=== PATIENT | male | born 1960 | race Caucasian/White ===

== ENCOUNTER → 2017-01-31 | Outpatient (CLI) | payer OTHER ==
[~2017-01-31] MED LIST: ALBUTEROL17 GM INH; AMARYL PO; AMARYL2 MG PO; AMITRIPTYLINE H25 MG PO; ASPIRIN EC81 M1 PO; ASPIRIN PO; ASPIRIN1 GM PO; ASPIRIN81 M1 PO; ASPIRIN81 M2 PO; ASPIRIN81 MG PO; ATORVASTATIN CA80 MG PO; AUGMENTIN PO; BACTRIM DS TABL1 TA1 PO; CELEXA10 MG PO; CENTRUM PO; CLINDAMYCIN HC300 MG PO; COLACE PO; COLCHICINE0.6 M1; COLCHICINE0.6 M1 PO; COLCRYS0.6 M2 PO; COMBIVENT INH14.7 GM INH; COREG PO; COUMADIN PO; COUMADIN1 MG PO; COUMADIN5 MG PO; CYANOCOBAL1000 MCG/1 INJ; ENDOCET 5-3251 EACH PO; FISH OIL 1,0001 CAP PO; GLUCOPHAGE XR500 MG PO; GLUCOPHAGE500 MG PO; HYDRALAZINE HC100 MG PO; HYDRALAZINE HCL50 MG PO; HYDROCODON-ACE1 EAC1 PO; HYDROCODONE-A1 UDTA4 PO; HYDROCODONE-APA1 T30 PO; IMITREX PO; INDERAL20 MG PO; INDERAL60 MG PO; JANUMET; JANUVIA PO; KEPPRA500 M2 PO; LASIX PO; LASIX20 MG PO; LEVEMIR100 UNITS/ SUBQ; LIPITOR40 MG PO; LIPITOR80 MG PO; LISINOPRIL PO; LISINOPRIL20 MG PO; LORTAB 7.5-3251 EACH PO; LORTAB 7.5-5001 TAB; LORTAB 7.5-5001 TAB PO; LORTAB 7.51 TAB DOB; METFORMIN HCL1000 M1 PO; METFORMIN PO; METOPROLOL SUCC50 MG PO; METOPROLOL TAR25 MG PO; MULTI-DAY1 TAB PO; NEURONTIN300 MG PO; NICOTINE PATCH1 EAC1 TD; PATIENT'S PHARMACY; PHENERGAN25 MG; POLYTRIM EYE DR10 ML OP; PRAVACHOL PO; PRAVASTATIN SOD40 MG PO; PRILOSEC PO; PRINIVIL10 MG PO; PRINIVIL20 M1 PO; PROPRANOLOL PO; PROTONIX PO; PROZAC10 M1 PO; PROZAC10 MG PO; SPIRIVA18 MCG INH; ST. JOSEPH ASPI81 M2 PO; TOPAMAX50 MG PO; TOPROL XL 50 MG50 MG PO; TRICOR PO; TYL325 PO; TYLENOL325 M1 PO; WARFARIN SODIU7.5 M1 PO; ZANAFLEX PO; ZANTAC PO; ZANTAC150 M1 PO; ZESTRIL40 MG PO
[2017-01-31 10:17] LABS: URINE APPEARANCE CLEAR; URINE BILIRUBIN NEG (NEG); URINE BLOOD NEG (NEG); URINE COLOR DK YELLOW; URINE GLUCOSE 500 MG/DL (NEG); URINE KETONE NEG (NEG); URINE LEUKOCYTE ESTERASE NEG (NEG); URINE NITRATE NEG (NEG); URINE PROTEIN NEG (NEG); URINE SPECIFIC GRAVITY 1.012 (1.003-1.035); URINE UROBILINOGEN 0.2 MG/DL (NEG)
[2017-01-31 10:24] LABS: URINE SOURCE CLEAN CATCH
[2017-01-31 11:36] LABS: ALBUMIN SERUM 4.4 g/dL (3.5-5.0); ALKALINE PHOSPHATASE 132 U/L (32-92); ALT (SGPT) 20 U/L (10-40); AST (SGOT) 23 U/L (10-42); BILIRUBIN,TOTAL 0.5 mg/dL (0.2-2.0); BLOOD UREA NITROGEN 17 mg/dL (9-23); BUN/CREATININE RATIO 14.16; CARBON DIOXIDE 26 mmol/L (22-31); CHLORIDE 102 mmol/L (100-111); CREATININE SERUM 1.2 mg/dL (0.6-1.4); GLOM FILT RATE Estimated ABOVE60 mL/min (>60); GLUCOSE FASTING 294 mg/dL (70-110); POTASSIUM 4.2 mmol/L (3.5-5.1); PROTEIN TOTAL SERUM 7.7 g/dL (6.0-8.3); SODIUM 136 mmol/L (135-145); URIC ACID 5.5 mg/dL (2.6-7.2)
== END | disposition home or self-care (01) ==
LOC: CLAB 09:54
PROVIDERS: Internal Medicine Nephrology
DX: N18.3 Chronic kidney disease, stage 3 (moderate) (principal)
CPT/HCPCS: 80053; 81003; 84550

== ENCOUNTER 2017-02-17 18:23 | Emergency (ER) | payer OTHER ==
--- NOTE | ~2017-02-17 | EKG ---
PATIENT: LANEY MATTA UNIT #: [id number] Ventricular Rate: 74 BPM Atrial Rate: 74 BPM P-R Interval: 210 ms QRS Duration: 204 ms Q-T Interval: 514 ms QTC Calculation(Bezet): 570 ms P [place]: 14 degrees Calculated R [place]: -73 degrees Calculated T [place]: 99 degrees Diagnosis Line: Atrial-sensed ventricular-paced rhythm with Diagnosis Line: prolonged AV conduction Diagnosis Line: Abnormal ECG Diagnosis Line: When compared with ECG of 01-AUG-2016 05:52, Diagnosis Line: Electronic ventricular pacemaker has replaced Diagnosis Line: Sinus rhythm Diagnosis Line: Vent. rate has increased BY 25 BPM Diagnosis Line: Confirmed by MIHAI SCHWARTZ MD ([id number]) on 02/18/2017 Diagnosis Line: 7:32:22 AM INTERPRETING MD: LANA GORDILLO
--- NOTE | ~2017-02-17 | CT71 ---
[facility] A Service of [facility] RADIOLOGY TEXT RESULTS PATIENT: LANEY MATTA LOCATION: [facility] : 62 UNIT #: [id number] AGE: [address]: Miles Pollard MD SEX: M ORDER DR: [id number] [facility] [address] [place], [place] [address] [id number] E MR#: [id number] #: [id number] NAME: LANEY MATTA. : 1960 SEX: M STUDY DATE/TIME: 02/17/2017 19:50 UNIT: IRVIN ROOM: STUDY DESCRIPTION: CT Head Wo Contrast Attending Physician: Roderick Pollard M.D. Ordering Physician: Pernell Raines M.D. Primary Care Physician: Irma Dietrich M.D. MEDICAL IMAGING REPORT This report is preliminary unless electronic signature is present EXAM Noncontrast head CT. HISTORY Syncope with headache today, syncopal episode 2 hours ago COMPARISON Head CT 07/29/[address] exam was performed with one or more of the following radiation dose reduction techniques: Automatic exposure control, adjustment of mA and/or kV according to patient size, and iterative reconstruction. FINDINGS Axial noncontrast imaging of the brain demonstrates extensive encephalomalacia in the right occipital lobe from prior infarct. There are multiple foci of decreased attenuation within the right basal ganglia , right thalamus and periventricular white matter which may represent small lacunar infarcts. This does not appear significantly changed from the prior CT scan of 07/29/2016. No mass or hemorrhage. No mass effect or midline shift. Intracranial vascular calcifications noted. Bony calvarium, skull base, mastoids and sinuses unremarkable. IMPRESSION 1. No acute intracranial abnormality identified. 2. Old right occipital lobe infarct as well as evidence of multiple small lacunar infarcts within the deep nuclei and right periventricular white matter. Study is unchanged from 07/29/2016. Dictated by.Herminio Walsh M.D. [facility] A Service of [facility] RADIOLOGY TEXT RESULTS PATIENT: LANEY MATTA LOCATION: [facility] : 62 UNIT #: [id number] AGE: [address]: Miles Pollard MD SEX: M ORDER DR: THIS IS AN ELECTRONICALLY VERIFIED REPORT Rudy Walsh M.D. at 02/18/2017 10:52 PM Naya TD: 02/18/2017 11:33 JOB #: [id number] MEDICAL IMAGING REPORT Page 1 of 1 COPY
[~2017-02-17 18:23] MED LIST changes: -AMARYL2 MG PO; -AMITRIPTYLINE H25 MG PO; -ASPIRIN81 M2 PO; -ASPIRIN81 MG PO; -ATORVASTATIN CA80 MG PO; -AUGMENTIN PO; -COLCHICINE0.6 M1 PO; -COLCRYS0.6 M2 PO; -COUMADIN PO; -CYANOCOBAL1000 MCG/1 INJ; -ENDOCET 5-3251 EACH PO; -IMITREX PO; -INDERAL20 MG PO; -INDERAL60 MG PO; -KEPPRA500 M2 PO; -LEVEMIR100 UNITS/ SUBQ; -LORTAB 7.5-3251 EACH PO; -NEURONTIN300 MG PO; -NICOTINE PATCH1 EAC1 TD; -PATIENT'S PHARMACY; -PRINIVIL10 MG PO; -PROPRANOLOL PO; -PROTONIX PO; -PROZAC10 M1 PO; -PROZAC10 MG PO; -TOPAMAX50 MG PO; -TYL325 PO; -WARFARIN SODIU7.5 M1 PO; -ZANAFLEX PO; -ZESTRIL40 MG PO
[2017-02-17 18:35] LABS: BASOPHIL# 0.1 X10e3 (0-0.3); BASOPHIL% 0.7 % (0-2.5); EOSINOPHIL# 0.1 X10e3 (0-0.7); EOSINOPHIL% 1.6 % (0.0-7.0); HEMATOCRIT 42.5 % (38.0-50.0); HEMOGLOBIN 14.2 gm/dL (13.0-16.0); LYMPHOCYTE# 2.6 X10e3 (1.0-3.5); LYMPHOCYTE% 31.7 % (17.0-45.0); MEAN CORPUSCULAR HEMOGLOBIN 26.8 PG (28-34); MEAN CORPUSCULAR HGB CONC 33.4 g/dL (30-36); MEAN PLATELET VOLUME 10.4 FL (6.5-11.5); MONOCYTE# 0.7 X10e3 (0-1.0); MONOCYTE% 8.9 % (3.0-12.0); NEUTROPHIL# 4.7 X10e3 (1.5-7.1); NEUTROPHIL% 57.1 % (40-75); PLATELET COUNT 203 X10e3 (140-420); RED BLOOD COUNT 5.31 X10e (3.90-5.60); WHITE BLOOD COUNT 8.3 X10e3 (4.0-10.5)
[2017-02-17 18:36] LABS: DIFF IND NO
[2017-02-17 18:56] LABS: ALBUMIN SERUM 4.2 g/dL (3.5-5.0); BILIRUBIN, DIRECT 0.1 mg/dL (0.0-0.2); BILIRUBIN,INDIRECT 0.6 mg/dL (0.0-0.9); BILIRUBIN,TOTAL 0.7 mg/dL (0.2-2.0); BUN/CREATININE RATIO 18.23; CALCIUM SERUM 9.4 mg/dL (8.4-10.2); CREATININE SERUM 1.7 mg/dL (0.6-1.4); GLOM FILT RATE Estimated 44.4 mL/min (>60); POTASSIUM 3.9 mmol/L (3.5-5.1); PROTEIN TOTAL SERUM 7.8 g/dL (6.0-8.3)
[2017-02-17 19:15] LABS: PARTIAL THROMBOPLASTIN TIME 34.9 SECONDS (23.5-31.3); PROTHROMBIN TIME (PATIENT) 10.6 SECONDS (9.6-11.5)
[2017-02-17 19:16] LABS: POC - CKMB 1.7 ng/mL (0.0-7.9); POC - TROPONIN <0.05 ng/mL (<=0.05)
[2017-02-17 19:16] LABS: URINE SOURCE CLEAN CATCH
[2017-02-17 19:29] LABS: URINE APPEARANCE CLEAR; URINE BILIRUBIN NEG (NEG); URINE BLOOD NEG (NEG); URINE COLOR DK YELLOW; URINE GLUCOSE NEG (NEG); URINE KETONE NEG (NEG); URINE LEUKOCYTE ESTERASE NEG (NEG); URINE NITRATE NEG (NEG); URINE PROTEIN NEG (NEG); URINE SPECIFIC GRAVITY 1.014 (1.003-1.035); URINE UROBILINOGEN 0.2 MG/DL (NEG)
[2017-02-17 19:32] LABS: CULTURE INDICATED? NO
[2017-02-17 19:39] LABS: AMPHETAMINE NEG (NEG); BARBITURATES NEG (NEG); BENZODIAZEPINES NEG (NEG); COCAINE NEG (NEG); MARIJUANA NEG (NEG); OPIATES NEG (NEG); TRICYCLIC ANTIDEPRESSANTS NEG (NEG); U METHADONE NEG (NEG)
[2017-02-17 19:46] LABS: POC - CKMB 1.9 ng/mL (0.0-7.9); POC - TROPONIN <0.05 ng/mL (<=0.05)
== END 2017-02-17 21:54 | disposition home or self-care (01) ==
LOC: CED 18:23
PROVIDERS: Emergency Medicine
DX: R55 Syncope and collapse (principal); R41.82 Altered mental status, unspecified; I25.2 Old myocardial infarction; F17.210 Nicotine dependence, cigarettes, uncomplicated; Z86.73 Personal history of transient ischemic attack (TIA), and cerebral infarction without residual deficits; Z95.1 Presence of aortocoronary bypass graft; Z79.899 Other long term (current) drug therapy
CPT/HCPCS: 36415; 70450; 80048; 80076; 80307; 81003; 82553; 84484; 85025; 85610; 85730; 93005; 99284; G0480

== ENCOUNTER 2017-03-05 14:49 | Inpatient (IN) | payer OTHER ==
--- NOTE | ~2017-03-05 | EKG ---
PATIENT: LANEY MATTA UNIT #: [id number] Ventricular Rate: 77 BPM Atrial Rate: 77 BPM P-R Interval: 358 ms QRS Duration: 118 ms Q-T Interval: 384 ms QTC Calculation(Bezet): 434 ms P [place]: 26 degrees Calculated R [place]: 19 degrees Calculated T [place]: -123 degrees Diagnosis Line: Sinus rhythm with 1st degree A-V block Diagnosis Line: Inferior infarct (cited on or before 05-MAR-2017) Diagnosis Line: ST and T wave abnormality, consider anterolateral Diagnosis Line: ischemia Diagnosis Line: Abnormal ECG Diagnosis Line: When compared with ECG of 05-MAR-2017 12:33, Diagnosis Line: No significant change was found Diagnosis Line: Confirmed by MIHAI SCHWARTZ MD ([id number]) on 03/06/2017 Diagnosis Line: 10:17:57 PM INTERPRETING MD: LANA GORDILLO
--- NOTE | ~2017-03-05 | US37 ---
[facility] A Service of [facility] RADIOLOGY TEXT RESULTS PATIENT: LANEY MATTA LOCATION: [facility] : 62 UNIT #: [id number] AGE: [address]: Lisseth Carmen MD SEX: M ORDER DR: [id number] [id number] [place], [place] [address] [id number] I MR#: [id number] #: [id number] NAME: LANEY MATTA. : 1960 SEX: M STUDY DATE/TIME: 03/06/2017 11:11 UNIT: [address] ROOM: [address] [place] [address] DESCRIPTION: US Carotid W/Doppler Bilateral Attending Physician: Lisseth Carmen M.D. Ordering Physician: Jon Tee M.D. Primary Care Physician: Irma Dietrich M.D. MEDICAL IMAGING REPORT This report is preliminary unless electronic signature is present EXAM Carotid Doppler DATE OF STUDY 03/06/2017 HISTORY 3 syncopal episodes in the past 2 days COMPARISON None TECHNIQUE Arshad-scale imaging, color Doppler flow imaging and Doppler wave form analysis. FINDINGS There is minimal arshad-scale evidence of atherosclerotic plaque and antegrade flow is seen in both common and internal and external carotid and vertebral arteries. Right internal carotid peak systolic velocity is 86 cm/second with a brisk systolic upstroke. Left internal carotid peak systolic velocity is 63 cm/second with a brisk systolic upstroke. IMPRESSION 1. While there is some arshad-scale evidence of atherosclerotic plaque, velocities and wave forms suggest less than 50% stenosis in both internal carotid arteries by NASCET criteria. 2. Antegrade flow in both external carotid and vertebral arteries as [facility] A Service of [facility] RADIOLOGY TEXT RESULTS PATIENT: LANEY MATTA LOCATION: [facility] : 62 UNIT #: [id number] AGE: [address]: Lisseth Carmen MD SEX: M ORDER DR: letty. Dictated by... Murtaza Harris M.D. THIS IS AN ELECTRONICALLY VERIFIED REPORT Murtaza Harris M.D. at 03/07/2017 5:03 PM TEV/to TD: 03/06/2017 21:09 JOB #: [id number] MEDICAL IMAGING REPORT Page 1 of 1 COPY
--- NOTE | ~2017-03-05 | CO ---
Unit #: [id number] #: [id number] Patient: TERA MATTA [id number] [facility] [address] [place], [place] [address] [id number] I MR#: [id number] NAME: TERA MATTA. ROOM: 312 Age: 56 Sex: M Admission Date: 03/05/2017 : 1960 Attending Physician: Lisseth Carmen M.D. Primary Care Physician: Irma Dietrich M.D. Consultation Date: 03/06/2017 CONSULTATION REPORT CHIEF COMPLAINT Depression and anxiety. HISTORY OF PRESENT ILLNESS Mr. Tera Glass is a 56-year-old male, seen in room 312 bed 1 at [facility]. The patient was admitted with chest pain. The patient was admitted initially with altered mental status. The patient has multiple health conditions such as diabetes type 2, history of CVA in May, pacemaker placement. The patient lives with his . The patient was sad, depressed, crying spell. The patient was not able to give reliable information. The patient was somewhat confused. The patient made comments about feeling sad, depressed, and comments about dying. The patient had a history of suicide attempt in the past. The patient also has medical condition, but unable to answer question about current suicidal or homicidal ideation. Minimizes problem, flat, sad and dysphoric. Denied any psychotic symptom, but somewhat confused. PAST PSYCHIATRIC HISTORY Remarkable for history of previous suicide attempt, but no history of any inpatient treatment known at this time or any outpatient treatment. MEDICAL HISTORY Remarkable for history of coronary artery disease, LA in 2008, hypertension, hyperlipidemia, diabetes mellitus type 2, obstructive sleep apnea. MEDICATION HISTORY The patient is on Levemir, Topamax, NovoLog, amitriptyline, Lipitor, Coumadin. Please refer to MAR for detail. FAMILY HISTORY AND SOCIAL HISTORY The patient has a good support system from his family. No history of any abuse. No history of any substance abuse. REVIEW OF SYSTEMS Complete review of systems is unremarkable except as mentioned above. MENTAL STATUS EXAMINATION General appearance, the patient dressed casually. Attention span and concentration, poor. Speech, slow. Orientation in place and self. Mood and affect were sad and dysphoric. Thought process was circumstantial. Thought content; the patient denied any thoughts of harming self or others, but made comments to the primary physician about feeling sad, depressed, and suicidal ideation, but able to contract for safety at this Unit #: [id number] #: [id number] Patient: TERA MATTA time. Recent and remote memory, poor. Language, fair. Fund of knowledge, poor. Insight and judgment, fair to slightly impaired. DIAGNOSES Psychiatric: 1. Major depressive disorder, recurrent, severe, F33.2. 2. Delirium, F05, improving. Secondary diagnosis: Deferred. Medical diagnosis: Please refer to H and P. Stressors: Psychosocial stressors. ASSESSMENT/PLAN 1. Supportive psychotherapy and psychoeducation provided to the patient. 2. Educated about benefits and side effects of medication and course and prognosis of illness. 3. Advised to start the patient on Celexa 20 mg daily for depression. If needed, consider further adjustment of medication. We will closely monitor. Please feel free to call if any questions telephone #[phone]. Dictated by... Malcom Mckenzie/yogesh TD: 03/07/2017 05:17 JOB #: [id number] CONSULTATION REPORT Page 1 of 1 X Ross Vergara MD X CONSULTATION REPORT
--- NOTE | ~2017-03-05 | CO ---
Unit #: [id number] #: [id number] Patient: LANEY AMTTA [id number] [address] [place], [place] [address] [id number] I MR#: [id number] NAME: LANEY MATTA. ROOM: 312 Age: 56 Sex: M Admission Date: 03/05/2017 : 1960 Attending Physician: Lisseth Carmen M.D. Primary Care Physician: Irma Dietrich M.D. Consultation Date: 03/05/2017 CONSULTATION REPORT REASON FOR CONSULTATION Syncope. HISTORY OF PRESENT ILLNESS This is a 56-year-old white male, who has since seen by our group in the past. He has a history of myocardial infarction in 2008, where he underwent coronary artery bypass graft x4. He is known to have symptomatic bradycardia and underwent dual-chamber permanent pacemaker in 2016. He has hypertension, hyperlipidemia, and a history of right CREMATORIUM OPERATOR cerebrovascular accident. The patient presents to the emergency room with altered mental status. He is a poor historian, but complains of a headache, dizziness, and abdominal discomfort. He has had several episodes of syncope with loss of consciousness. His states he has ataxia and falls frequently. He has had no loss of bowel or bladder. He denies chest pain, palpitations, or dizziness. He states his pacemaker has been shocking him. He has not been eating and drinking well, because of epigastric pain. His noted him to be confused and brought him to the emergency room for evaluation. In the emergency room, the patient was found to be in acute kidney injury, where his creatinine was 2.2. He was normotensive on arrival with blood pressure of 131/76 mmHg. No arrhythmias were seen on his EKG. Troponin was normal. He did have an old inferior infarct with deep T-wave inversion in the anterolateral leads on his EKG. CT of the head showed no acute changes. INR is subtherapeutic at 1.1. PAST MEDICAL HISTORY 1. A 2D echocardiogram on 06/16/2016 shows an ejection fraction equal to 50%. There was a right to left interatrial shunt consistent with PFO. Ommd-ul-ngrgcobz mitral regurgitation, mild tricuspid regurgitation. No left atrial appendage clot. Kxgh-en-lhmbdgse atherosclerosis of the aorta. 2. Myocardial infarction in 2008, status post coronary artery bypass graft x4. 3. Hypertension. 4. Hyperlipidemia. 5. Sick sinus syndrome/symptomatic bradycardia, status post dual-chamber [employer] permanent pacemaker on 08/01/[address] Cho at [facility]. 6. PFO, on Coumadin. 7. Right CREMATORIUM OPERATOR cerebrovascular accident. 8. Obstructive sleep apnea. 9. Active smoker. Unit #: [id number] #: [id number] Patient: LANEY MATTA PAST SURGICAL HISTORY 1. Coronary artery bypass graft. 2. Permanent pacemaker. 3. Cholecystectomy. SOCIAL HISTORY The patient is and not employed. He continues to smoke at least 3 to 4 cigarettes a day. No illicit drug or alcohol use. FAMILY HISTORY Mother had coronary artery bypass surgery. Father from a myocardial infarction in his 60s. ALLERGIES No known drug allergies. HOME MEDICATIONS Furosemide 20 mg daily, Coumadin 5 mg daily, lisinopril 40 mg daily, hydralazine 100 mg b.i.d., Lipitor 80 mg q.h.s., amitriptyline 25 mg q.h.s., Neurontin 300 mg t.i.d., colchicine 0.6 mg daily, Protonix 40 mg daily. REVIEW OF SYSTEMS CONSTITUTIONAL: Negative for fever or chills. Reports weakness. No weight gain or weight loss. HEENT: Positive for headache and dizziness. No difficulty with swallowing. CARDIOVASCULAR: Negative for chest pain or palpitations. No paroxysmal nocturnal dyspnea or orthopnea. Positive for syncope. RESPIRATORY: Denies dyspnea, cough, or hemoptysis. GASTROINTESTINAL: Positive for epigastric pain and nausea. No vomiting. EXTREMITIES: Negative for lower extremity edema. PHYSICAL EXAMINATION VITAL SIGNS: Blood pressure 131/76, heart rate 72, temperature 98.3. GENERAL: This is a 56-year-old middle-aged white male, who is in no acute distress. NEUROLOGIC: He is awake, alert, and oriented without focal weaknesses. NECK: Trachea is midline. No thyromegaly or lymphadenopathy. No jugular venous distention. HEART: S1, S2. Heart sounds are normal. No murmurs, rubs, or clicks. Regular rate and rhythm. LUNGS: Diminished breath sounds with poor inspiratory effort. No wheezes or rhonchi. ABDOMEN: Soft and nontender with bowel sounds are present. EXTREMITIES: Without leg edema. SKIN: Warm and dry. DIAGNOSTIC STUDIES LABORATORY RESULTS: Hemoglobin 15.0, hematocrit 44.5, platelet count 194, white count 7.7. Sodium 136, potassium 4.2, BUN 25, creatinine 2.2, glucose 241, magnesium 1.9. Troponin less than 0.05. INR 1.1. IMAGING STUDIES: CT of the head shows no acute changes. There was previous right CREMATORIUM OPERATOR infarct. CARDIOVASCULAR: EKG; sinus rhythm with a first-degree AV block with old Unit #: [id number] #: [id number] Patient: LANEY MATTA inferior infarct. There was deep anterolateral T-wave inversion noted for ischemic changes. IMPRESSION 1. Mental status change. 2. Staggered gait. 3. Abdominal pain with nausea and vomiting. 4. Rule out basal artery disease in a diabetic with heavy nicotine abuse. 5. Volume depletion. 6. Headache, questionable etiology. 7. Syncope, most likely secondary to volume depletion. 8. Sick sinus syndrome, status post permanent pacemaker. 9. History of cerebrovascular accident. 10. History of myocardial infarction, status post coronary artery bypass graft in 2008. PLAN 1. Cardiology was consulted for cardiac management. We will continue to trend cardiac enzymes and troponin. EKG is abnormal with new anterolateral ischemic changes. We will repeat EKG. 2. Replace fluids. 3. Await neuro consult. 4. I have asked the patient to discontinue nicotine abuse. 5. Syncope, it is most likely secondary to volume depletion. 6. Coumadin has been restarted. INR is subtherapeutic. We will continue to trend INR. 7. We may have to hold CTA, because of elevated creatinine. We will add Mucomyst for renal protection. 8. Ultrasound of the carotid and vertebral artery will be obtained to rule out basilar artery stenosis. 9. Orthostatic blood pressures will be obtained to rule out orthostatic hypotension. 10. We will follow the patient with you. Thank you for allowing us to assist in this patient's care. Dictated by... Hany Felipe A.P.R.N. for Malcom Cruz/courtneyl TD: 03/07/2017 00:41 JOB #: [id number] CC: Irma Dietrich M.D. CONSULTATION REPORT Page 1 of 1 X Hany Felipe APRN CONSULTATION REPORT
--- NOTE | ~2017-03-05 | US6 ---
[facility] A Service of [facility] RADIOLOGY TEXT RESULTS PATIENT: LANEY MATTA LOCATION: [facility] 312- : [birth year] UNIT #: [id number] AGE: [address]: Lisseth Carmen MD SEX: M ORDER DR: [id number] [facility] [address] [place], [place] [address] [id number] I MR#: [id number] #: [id number] NAME: LANEY MATTA. : 1960 SEX: M STUDY DATE/TIME: 03/05/2017 19:02 UNIT: [address] ROOM: [facility] STUDY DESCRIPTION: US Abdominal Limited Attending Physician: Lisseth Carmen M.D. Ordering Physician: Jon Tee M.D. Primary Care Physician: Irma Dietrich M.D. MEDICAL IMAGING REPORT This report is preliminary unless electronic signature is present EXAM Right upper quadrant sonogram HISTORY 56-year-old male right upper quadrant pain off and on x2 days, nausea, vomiting. Patient diabetic, prior cholecystectomy. FINDINGS Real-time examination demonstrates the liver to be of normal size, shape and echogenicity. No intra- or extrahepatic ductal dilatation is identified. The common bile duct measures 6.9 mm. Visualized right kidney appears normal. The pancreas not well visualized due to bowel gas. No free fluid. IMPRESSION 1. Limited right upper quadrant sonogram demonstrates normal liver and right kidney with no free fluid or ductal dilatation. 2. Poor visualization of the pancreas. Patient is post cholecystectomy. Dictated by... Rudy Walsh M.D. THIS IS AN ELECTRONICALLY VERIFIED REPORT Rudy Walsh M.D. at 03/06/2017 10:59 PM DYLAN/mumtaz TD: 03/05/2017 23:24 JOB #: [id number] MEDICAL IMAGING REPORT Page 1 of 1 COPY
--- NOTE | ~2017-03-05 | CO ---
Unit #: [id number] #: [id number] Patient: TERA RADFORD [id number] [facility] [address] [place], [place] [address] [id number] I MR#: [id number] NAME: TERA RADFORD. ROOM: 312 Age: 56 Sex: M Admission Date: 03/05/2017 : 1960 Attending Physician: Lisseth Carmen M.D. Primary Care Physician: Irma Dietrich M.D. Consultation Date: 03/07/2017 CONSULTATION REPORT REASON FOR CONSULTATION Depression. DISCUSSION Mr. Tera Radford is a 56-year-old male seen on 03/07/2017 at [facility] in room 312, bed 1. Patient was sleeping, guarded, flat affect, sad, and dysphoric. Patient started on Celexa. Patient's nurse called and reported that patient is having problem with confusion, agitation, paranoia, and delusional thinking. Patient's reported that he had problems with this medication before, similar behavior, which is a typical side effect from the medication. Patient's vital signs: 99.6, 56, 19, and 144/99. Patient denied any other complaints. Denied any suicidal ideation, but history of suicidal ideation and depression at the time of admission. REVIEW OF SYSTEMS Complete review of systems unremarkable. MENTAL STATUS EXAMINATION GENERAL APPEARANCE: Patient dressed in hospital attire. ATTENTION SPAN AND CONCENTRATION: Poor. SPEECH: Slow. ORIENTATION: Oriented in place. MOOD AND AFFECT: Sad, depressed. THOUGHT PROCESS: Circumstantial. THOUGHT CONTENT: Guarded and paranoid, but denied any thoughts of harming self or others; but sad, depressed. RECENT AND REMOTE MEMORY: Fair to poor. LANGUAGE: Fair. FUND OF KNOWLEDGE: Fair. INSIGHT AND JUDGEMENT: Fair to slightly impaired. DIAGNOSES PSYCHIATRIC: Major depressive disorder, recurrent, severe, F33.2. ASSESSMENT/PLAN 1. Supportive psychotherapy and psychoeducation provided to patient. 2. Educated about benefits and side effects of medication and course and prognosis of illness. Advised to consider stopping Celexa and monitor patient's mood and behavior. If needed, consider alternative medication. Please feel free to call if any questions, telephone number . Unit #: [id number] #: [id number] Patient: TERA RADFORD [place] Dictated by... Malcom Mckenzie/avani TD: 03/08/2017 11:20 JOB #: [id number] CONSULTATION REPORT Page 1 of 1 X Ross Vergara MD CONSULTATION REPORT
--- NOTE | ~2017-03-05 | EKG ---
PATIENT: LANEY MATTA UNIT #: [id number] Ventricular Rate: 74 BPM Atrial Rate: 74 BPM P-R Interval: 384 ms QRS Duration: 118 ms Q-T Interval: 394 ms QTC Calculation(Bezet): 437 ms P [place]: 19 degrees Calculated R [place]: 19 degrees Calculated T [place]: -127 degrees Diagnosis Line: Sinus rhythm with 1st degree A-V block Diagnosis Line: Inferior infarct , age undetermined Diagnosis Line: ST and T wave abnormality, consider anterolateral Diagnosis Line: ischemia Diagnosis Line: Abnormal ECG Diagnosis Line: When compared with ECG of 17-FEB-2017 19:43, Diagnosis Line: Sinus rhythm has replaced Electronic ventricular Diagnosis Line: pacemaker Diagnosis Line: Confirmed by MIHAI SCHWARTZ MD ([id number]) on 03/05/2017 Diagnosis Line: 11:03:34 PM INTERPRETING MD: LANA GORDILLO
--- NOTE | ~2017-03-05 | CO ---
Unit #: [id number] #: [id number] Patient: TERA RADFORD [id number] [facility] [address]. [place], [place] [address] [id number] I MR#: [id number] NAME: TERA RADFORD ROOM: 312 Age: 56 Sex: M Admission Date: 03/05/2017 : 1960 Attending Physician: Lisseth Carmen M.D. Primary Care Physician: Irma Dietrich M.D. Consultation Date: 03/08/2017 CONSULTATION REPORT REASON FOR CONSULTATION Followup. DISCUSSION Mr. Tera Radford is a 56-year-old male, seen in room 312, bed 1 on 03/08/2017 at [facility]. The patient reports that his mood is better, decrease in anxiety, compliant with medication. The patient denied any chest pain. The patient's was at the bedside. The patient reported that he had a bad reaction with Celexa in the past. The patient was taken off from this medication. REVIEW OF SYSTEMS Complete review of systems is unremarkable. MENTAL STATUS EXAMINATION General appearance, the patient dressed casually, lying comfortably in bed, made good eye contact, able to smile. Attention span and concentration, fair. Speech, regular rate and coherent. Oriented in time, place, and person. Mood and affect were somewhat brighter and able to smile. Thought process, coherent and goal directed. Thought content, the patient denied any thoughts of harming self or others or any psychotic symptom. Recent and remote memory, fair. Language, intact. Fund of knowledge, fair. Insight and judgment, fair. DIAGNOSES Mood disorder, not otherwise specified, F32.9; history of major depressive disorder, recurrent. ASSESSMENT AND PLAN 1. Supportive psychotherapy and psychoeducation provided to the patient. 2. Educated about benefits and side effects of medication and course and prognosis of illness. The patient was taken off from Celexa. Advised to follow up with the outpatient psychiatrist upon discharge. Dictated by..Bautista Vergara M.D. ISIDORO/yogesh TD: 03/10/2017 04:38 JOB #: [id number] Unit #: [id number] #: [id number] Patient: TERA RADFORD CONSULTATION REPORT Page 1 of 1 X Ross Vergara MD CONSULTATION REPORT
--- NOTE | ~2017-03-05 | DS ---
Unit #: [id number] #: [id number] Patient: LANEY MATTA [id number] [facility]. [address] [address] [id number] I MR#: [id number] NAME: LANEY MATTA. ROOM: 312 Age: 56 Sex: M Admission Date: 03/05/2017 : 1960 Discharge Date: Attending Physician: Lisseth Carmen M.D. Primary Care Physician: Irma Dietrich M.D. DISCHARGE SUMMARY ADDENDUM The patient is status post evaluation per Psychiatry, no changes made. For now, outpatient followup with Psychiatry. DISCHARGE MEDICATIONS 1. Coumadin 5 mg daily. 2. Topamax 50 mg b.i.d. 3. Amitriptyline 25 mg h.s. 4. Atorvastatin 80 mg h.s. 5. Hydralazine 50 mg p.o. b.i.d. 6. Levemir 5 units subcu h.s. 7. Protonix 40 mg p.o. daily. FOLLOWUP Patient is to follow up with primary care physician in two to three days. DISPOSITION Patient is being discharged home with Home Health to follow PT/INR. These results need to be called to Cardiology or primary care physician. Dictated by... Neto Clarke M.D. OC/jimi TD: 03/08/2017 21:53 JOB #: [id number] DISCHARGE SUMMARY Page 1 of 1 X Neto Clarke MD X DISCHARGE SUMMARY
--- NOTE | ~2017-03-05 | CO ---
Unit #: [id number] #: [id number] Patient: LANEY MATTA [id number] [facility] [address] [facility]. [place], [place] [address] [id number] MR#: [id number] NAME: LANEY MATTA. ROOM: 312 Age: 56 Sex: M Admission Date: 03/05/2017 : 1960 Attending Physician: Lisseth Carmen M.D. Primary Care Physician: Irma Dietrich M.D. Consultation Date: 03/06/2017 CONSULTATION REPORT PRIMARY CARE PHYSICIAN Irma Dietrich M.D. REASON FOR CONSULTATION Mental status changes. PATIENT IDENTIFICATION This is a 56-year-old right-handed white male, who is evaluated in room 312 at [facility]. SOURCE OF INFORMATION The patient and previous evaluations. Unfortunately, his is not here. Dr. Carmen has seen the patient. PROBLEM LIST 1. Prior strokes looks like cardioembolic and he is on anticoagulation. 2. Prior bradycardiac episodes. He is status post pacemaker. 3. Hypertension. 4. Hyperlipidemia. 5. Diabetes mellitus type 2. 6. PFO with cwuqk-cm-pzao shunt. 7. Tobacco abuse. He was on 4 packs a day, now is on 2-pack a day. 8. Obstructive sleep apnea. 9. Chronic headaches for which she follows with Dr. Gao. 10. Cholecystectomy. 11. Coronary artery bypass grafting. 12. Possible noncompliance. HISTORY OF PRESENT ILLNESS This is a 56-year-old gentleman, who is actually known to Neurology after seen him several times in the past. He has strokes in 05/2016. He ended up having a pacemaker placed. He is on anticoagulation therapy with warfarin, but his INR was low. He sees Dr. Gao for headaches and he was started on Elavil. He complains of headaches and also on top of that, he complains of passing out episode. He said the headache will hit him and then a sort of collapse and then will be fine, he may be alert, but confused afterwards. Nobody has witnessed a generalized convulsive type seizure. His INR was 1.1 and he is supposed to be on Coumadin. His white count is 7.7, RBC count was 5.63, H and H of [address] showing a prior stroke, but nothing else. Unit #: [id number] #: [id number] Patient: LANEY MATTA There was concern about nausea and vomiting and diarrhea, the patient now denies. He says the headache is gone. He is awake, alert, and minimally confused about the exact date of the month, but otherwise he is oriented, he can name, and he can follow commands. He cannot even tell me why he is here. Nothing suggesting meningismus. Nothing suggesting active seizure. Nothing suggesting [employer]OR infection or hemorrhage. He still smokes about 2 packs a day. He drinks 2 L of caffeinated beverages a day and he is talking about Big Red and other type of drinks with increased caffeine content. PAST MEDICAL HISTORY As discussed above. PAST SURGICAL HISTORY As discussed above. ALLERGIES None. HOME MEDICATIONS Lasix, Coumadin 5 mg p.o. daily, Zestril 40 mg daily, hydralazine 100 mg p.o. b.i.d., Lipitor 80 mg at bedtime, amitriptyline 25 mg at bedtime, Neurontin 300 mg t.i.d., Colchicine 0.6 mg p.o. daily, Protonix 40 mg p.o. daily. FAMILY HISTORY Father had UT at age 60. Mother had CABG done, so she did have coronary artery disease. SOCIAL HISTORY The patient lives with his . He is still smoking. He is now 2-pack a day from 4-packs. No history of alcohol or drug use. REVIEW OF SYSTEMS Right now, he feels fatigued, but no more headaches. CONSTITUTIONAL: No sleep issues, fever, chills, rigor, or sweats. HEENT: Headaches resolved. NECK: No neck pain. CARDIOVASCULAR: No chest pain, clubbing, cyanosis, orthopnea, or palpitation. PULMONARY: No shortness of air, cough, or expectoration. GI: No nausea, vomiting, diarrhea, or constipation. : No genitourinary symptom. EXTREMITIES: No extremity problems. BACK: No back problems. PSYCHIATRIC: No psychiatric issue. Unit #: [id number] #: [id number] Patient: LANEY MATTA NEUROLOGIC: As discussed. No other hematologic, dermatologic, or endocrine problems. He is supposed to be on anticoagulation, but it looks like he is noncompliant or the other issues. PHYSICAL EXAMINATION VITAL SIGNS: Temperature 97.6, pulse 78, respirations 18, blood pressure 140/74, O2 saturations of 98% to 100%. Weight of 209 pounds. BMI was 27. NEUROLOGIC: The patient is awake. He is alert. He does not know the exact date of the month, but he is approximately okay. He knows this is 02/2017, it is Sunday or Sunday. He can name and he can follow commands. No right/left confusion. No finger agnosia. 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 Pupils are sluggishly reactive. Sensation on the face and scalp are normal. Strength of muscles of facial expression normal. Hearing seemed to be intact. Tongue was midline. Uvula was midline. Palate elevation was normal. I did not see any facial asymmetry. Head turning was spontaneous. Tongue was midline. Uvula was midline. Motor examination, he has normal bulk, tone. Strength was essentially 5/5. No pronator drift or fine motor movement abnormality was seen. Sensory examination intact for soft touch and pain sensation. No extinction was seen. Romberg was not evaluated. Gait examination was deferred. I could not get any reflexes. Toes are equivocal. Coordination was normal. DIAGNOSTIC STUDIES LABORATORY RESULTS: Reviewed. IMAGING STUDIES: Reviewed IMPRESSION 1. This is a very interesting 56-year-old gentleman with headache, questionable syncope, prior strokes, possible noncompliance. 2. There was nothing active neurologically going on. It does not look like he has central nervous system hemorrhage or central nervous system infection. 3. Seizures less likely. His biggest complaints are confusion and headache, so he is probably having headaches causing most of the problems. I will put him on Topamax 50 mg b.i.d., but the question is it looks like he is noncompliant. He is still smoking 2 packs a day. He is drinking 2 L of highly caffeinated beverages, so there is something that he has to deal with. There is nothing active going on right now. There is nothing active infection type situation, so I will put him on Topamax 50 mg b.i.d., to follow up with Dr. Gao and please see my note. One of the issues is that do we need to go up on his Elavil, but I think I will take the other approach and he has to work on his caffeine and tobacco habit and take medication as advised and we will go from there. Unfortunately, his is not here. Call me for any other questions, issues, or concerns because there is nothing else that I need to work on while in the hospital, but if there is any question, I will be more than glad to Unit #: [id number] #: [id number] Patient: LANEY MATTA discuss and work it out. Follow up with Dr. Gao. Dictated by... Malcom Balderas/yogesh TD: 03/07/2017 01:52 JOB #: [id number] CONSULTATION REPORT Page 1 of 1 X Pedro Jordan MD CONSULTATION REPORT
--- NOTE | ~2017-03-05 | CT71 ---
[facility] A Service [facility] RADIOLOGY TEXT RESULTS PATIENT: LANEY MATTA LOCATION: [facility] : 62 UNIT #: [id number] AGE: [address]: Jon Tee MD SEX: M ORDER DR: [id number] [id number] [facility]. [place], [place] [address] [id number] E MR#: [id number] Acc #: [id number] NAME: LANEY MATTA. : 1960 SEX: M STUDY DATE/TIME: 03/05/2017 13:23 UNIT: [facility] ROOM: STUDY DESCRIPTION: CT Head Wo Contrast Attending Physician: Jon Tee M.D. Ordering Physician: Jon Tee M.D. Primary Care Physician: Irma Dietrich M.D. MEDICAL IMAGING REPORT This report is preliminary unless electronic signature is present EXAM CT scan of the head without contrast. HISTORY Headache and vomiting since yesterday. History of stroke. Generalized weakness. COMPARISON STUDIES 02/17/2017 TECHNIQUE Unenhanced images were obtained through the brain. This CT exam was performed with one or more of the following radiation dose reduction techniques: automatic exposure control, adjustment of mA and/or kV according to patient size, and iterative reconstruction. FINDINGS There is an old right posterior cerebral artery infarct with encephalomalacia involving the occipital lobe. This is unchanged from the prior study. There is no acute hemorrhage or stroke. The left cerebral hemisphere appears normal. IMPRESSION No change from 02/17/2017. The patient appears to have had a previous right posterior cerebral artery infarct. There are no acute findings. Dictated by... Modesto Sky M.D. [facility] A Service [facility] RADIOLOGY TEXT RESULTS PATIENT: LANEY MATTA LOCATION: [facility] : 62 UNIT #: [id number] AGE: [address]: Jon Tee MD SEX: M ORDER DR: THIS IS AN ELECTRONICALLY VERIFIED REPORT Modesto Sky M.D. at 03/05/2017 4:11 PM Any TD: 03/05/2017 15:55 JOB #: [id number] MEDICAL IMAGING REPORT Page 1 of 1 COPY
--- NOTE | ~2017-03-05 | DS ---
Unit #: [id number] #: [id number] Patient: LANEY MATTA [id number] [facility]. [address] [place], [place] [address] [id number] I MR#: [id number] NAME: LANEY MATTA. ROOM: 312 Age: 56 Sex: M Admission Date: 03/05/2017 : 1960 Discharge Date: 03/07/2017 Attending Physician: Lisseth Carmen M.D. Primary Care Physician: Irma Dietrich M.D. DISCHARGE SUMMARY DISCHARGE DIAGNOSES 1. Syncope with fall, status post cardiology evaluation, status post PT and OT evaluation. Okay to discharge home. 2. Acute renal failure, which is resolving. 3. History of coronary disease, status post coronary artery bypass graft. 4. Diabetes type 2. 5. History of chronic headaches. 6. Depression. 7. Tobacco use. Counseled in regards to quitting. [facility]ULT[facility] ST[facility] Dr. Vergara, psychiatry; Dr. Jordan, neurology; Dr. Felipe, Cardiology. LABS, DIAGNOSTICS AND PROCEDURE DURING HOSPITAL STAY 1. CT head - negative. 2. Abdominal ultrasound - normal liver, no free fluid, or ductal dilation. 3. Carotid Doppler - some weiner-scale evidence of atherosclerotic plaque. No significant stenosis by NASCET criteria, less than 50%. HISTORY OF PRESENT HOSPITAL STAY Please refer to H and P done by my colleague for initial presentation on this gentleman. (1) , syncope with fall, status post cardiology evaluation. The patient is stable to be discharged. Patient will have PT and OT evaluation and declared by PT and OT to be safe, to be discharged home. Acute renal failure resolving. BUN and creatinine 16 and 1.1. History of coronary artery disease and sick sinus syndrome, status post CABG, status post permanent pacemaker on chronic anticoagulation. On discharge date, PT and INR 11.2 and 1.1. Continue Coumadin. Outpatient followup with the primary care physician and cardiology. Monitor INR. Diabetes: Was started on Levemir. Chronic headaches: Status post evaluation per neurology. Negative CT. Started on Topamax. Depression: Status post evaluation per psychiatry, statin and Celexa. It looks like patient is more anxious since they started on Celexa, therefore this will be discontinued. Unit #: [id number] #: [id number] Patient: LANEY MATTA History of tobacco abuse: Counseled on and plans on quitting. Please note that this is a preliminary discharge summary. The patient will not discharge today secondary to worsening depression and anxiety. Will make an addendum to the discharge at the actual date of the discharge. Dictated by... Neto Clarke M.D. OC/ts TD: 03/08/2017 07:45 JOB #: [id number] DISCHARGE SUMMARY Page 1 of 1 X Neto Clarke MD X DISCHARGE SUMMARY
--- NOTE | ~2017-03-05 | HP ---
Unit #: [id number] #: [id number] Patient: TERA RADFORD [id number] [address] [place], [place] [address] [id number] E MR#: [id number] NAME: TERA RADFORD ROOM: Age: 56 Sex: M Admission Date: 03/05/2017 : 1960 Attending Physician: Jon Tee M.D. Primary Care Physician: Irma Dietrich M.D. HISTORY AND PHYSICAL CHIEF COMPLAINT Altered mental status. HISTORY OF PRESENTING ILLNESS Mr. Tera Radford is a 56-year-old male with multiple medical problems including diabetes mellitus type 2, history of CVA in May 2016, pacemaker placement in July 2016, anticoagulation therapy with warfarin, persistent headaches, depression, hypertension, hyperlipidemia, and coronary artery disease, who lives with his . Most of the history was taken from patient's who is at the bedside as the patient is depressed. He is crying and really not giving much history. Patient has been not eating for the last four to five days. He started having vomiting yesterday and even this morning. He has been having some diarrhea also. Patient has not been taking his medications. According to , she tries to give it to him, but a lot of the time he throws up. Patient is very depressed, and he states that he wants to . Patient has had a history of trying to commit suicide in the past. Patient had three syncopal episodes yesterday. According to , he went to the bathroom and fell backwards. All three times, he almost fell backwards. He is not complaining of headache, back pain, or leg pain. Actually, he is not complaining of anything. He wants to go home. His mental status has improved since he has come to the ER. He has been given hydration. He was clinically dry. Maybe some of the mental status changes could be secondary to decreased intravascular volume. He does not complain of chest pain or shortness of breath. He does complain of abdominal pain in the epigastric area. Patient is supposed to have peptic ulcer disease and has not been taking his medications. PAST MEDICAL HISTORY 1. Coronary artery disease with AK in 2008, status post four-vessel CABG. 2. 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 3. Hypertension. 4. Hyperlipidemia. 5. Diabetes mellitus type 2. 6. Patent foramen ovale with [id number]-[id number] shunt. 7. Tobacco abuse. Patient used to smoke four packs per day but has decreased to two packs per . 8. Obstructive sleep apnea. PAST SURGICAL HISTORY 1. Cholecystectomy. 2. Coronary artery bypass grafting. Unit #: [id number] #: [id number] Patient: TERA RADFORD 3. Pacemaker placement. SOCIAL HISTORY Patient lives with his . He is still smoking. He used to smoke four packs per day, and now he has cut down to two packs. No history of alcohol abuse or drug use. FAMILY HISTORY Patient's father with an AK at the age of 60. Patient's mother has had CABG also. ALLERGIES No known drug allergies. REVIEW OF SYSTEMS As per History of Presenting Illness. PHYSICAL EXAMINATION GENERAL: Patient is lying in bed in no distress but is shaking. According to him, he is kind of cold. He is crying while talking to me. VITAL SIGNS: Blood pressure is 96/68, respiratory rate 24, pulse 72, temperature 98.3, and oxygen saturation is 98%. HEENT: Head is normocephalic. Eye movements are normal. NECK: Supple. No thyromegaly. CHEST: Fair air entry. CARDIOVASCULAR: S1 and S2 positive. Regular rhythm. ABDOMEN: Tenderness is present in the epigastric area. Bowel sounds are positive. Otherwise, soft to touch. EXTREMITIES: Negative edema. Pulses are palpable. CENTRAL NERVOUS SYSTEM: Patient is awake, alert, and oriented x3, but he seems to be pretty depressed. Neurology exam was kind of limited. DIAGNOSTIC STUDIES LABORATORY: WBC 7.7, hemoglobin 15, hematocrit 44.5, and platelet count of 194,000. PT-INR is 11.2 and 1.1. Sodium 136, potassium 4.2, chloride 101, BUN 25, creatinine 2.2, glucose 241, alkaline phosphatase 143, and magnesium 1.9. Alcohol less than 5. Troponin level less than 0.05. Urine drug screen is normal. IMAGING: CT scan of the head without contrast was done which shows no change since February 17, 2017. ASSESSMENT Patient is being admitted to telemetry unit with: 1. Mental status changes. 2. Syncope x3 yesterday. 3. Dehydration. 4. Acute renal failure possibly due to decreased intravascular volume. 5. Diabetes mellitus type 2. 6. Pacemaker placement in July 2016. 7. Coronary artery disease, status post coronary artery bypass grafting. 8. Anticoagulation therapy but seems like patient is noncompliant and is subtherapeutic at this time. 9. Headaches since cerebrovascular accident per . Patient does follow with Dr. Gao as an outpatient. 10. Depression/suicidal. PLAN Unit #: [id number] #: [id number] Patient: TERA RADFORD Admit to telemetry unit. Dr. Jordan has been consulted. IV fluids are being started and also hydration. IV Protonix 40 mg p.o. daily is being done. Ultrasound of the right upper quadrant will be done. Dr. Vergara has been consulted for depression. Bedside sitter will be placed. Accu-Cheks a.c. and at bedtime with insulin sliding scale. Lovenox 40 mg subcutaneous daily. Home medications will be reviewed and adjusted. Home medications will be obtained from the pharmacy, as patient and patient's do not have the list. I discussed with patient's at length about the plan of care. They do verbalize understanding. Dictated by Malcom Castaneda TD: 03/05/2017 17:37 JOB #: [id number] Dictated by Malcom Castaneda TD: 03/05/2017 17:57 JOB #: [id number] HISTORY AND PHYSICAL Page 1 of 1 X Lisseth Camren MD X HISTORY AND PHYSICAL
[2017-03-05 12:53] LABS: BASOPHIL# 0.1 X10e3 (0-0.3); BASOPHIL% 0.7 % (0-2.5); EOSINOPHIL# 0.1 X10e3 (0-0.7); EOSINOPHIL% 0.8 % (0.0-7.0); HEMATOCRIT 44.5 % (38.0-50.0); LYMPHOCYTE# 2.2 X10e3 (1.0-3.5); LYMPHOCYTE% 28.6 % (17.0-45.0); MEAN CELL VOLUME 78.9 FL (83-96); MEAN CORPUSCULAR HEMOGLOBIN 26.6 PG (28-34); MEAN CORPUSCULAR HGB CONC 33.7 g/dL (30-36); MONOCYTE# 0.6 X10e3 (0-1.0); MONOCYTE% 7.4 % (3.0-12.0); NEUTROPHIL# 4.8 X10e3 (1.5-7.1); NEUTROPHIL% 62.5 % (40-75); PLATELET COUNT 194 X10e3 (140-420); RED BLOOD COUNT 5.63 X10e (3.90-5.60); RED CELL DISTRIBUTION WIDTH 14.6 % (11.0-15.5); WHITE BLOOD COUNT 7.7 X10e3 (4.0-10.5)
[2017-03-05 13:03] LABS: DIFF IND NO
[2017-03-05 13:11] LABS: INR 1.1; PARTIAL THROMBOPLASTIN TIME 34.9 SECONDS (23.5-31.3); PROTHROMBIN TIME (PATIENT) 11.2 SECONDS (9.6-11.5)
[2017-03-05 13:17] LABS: ALKALINE PHOSPHATASE 143 U/L (32-92); ALT (SGPT) 16 U/L (10-40); AST (SGOT) 15 U/L (10-42); BILIRUBIN, DIRECT 0.2 mg/dL (0.0-0.2); BILIRUBIN,INDIRECT 0.9 mg/dL (0.0-0.9); BILIRUBIN,TOTAL 1.1 mg/dL (0.2-2.0); BLOOD UREA NITROGEN 25 mg/dL (9-23); BUN/CREATININE RATIO 11.36; CALCIUM SERUM 9.3 mg/dL (8.4-10.2); CARBON DIOXIDE 23 mmol/L (22-31); CHLORIDE 101 mmol/L (100-111); CREATININE SERUM 2.2 mg/dL (0.6-1.4); GLOM FILT RATE Estimated 32.5 mL/min (>60); GLUCOSE FASTING 241 mg/dL (70-110); MAGNESIUM 1.9 mg/dL (1.6-3.0); POTASSIUM 4.2 mmol/L (3.5-5.1); PROTEIN TOTAL SERUM 7.6 g/dL (6.0-8.3); SODIUM 136 mmol/L (135-145)
[2017-03-05 13:19] LABS: ALCOHOL BLOOD <5 mg/dL (0)
[2017-03-05 13:35] LABS: POC - CKMB 1.3 ng/mL (0.0-7.9); POC - TROPONIN <0.05 ng/mL (<=0.05)
[2017-03-05 15:34] LABS: AMPHETAMINE NEG (NEG); BARBITURATES NEG (NEG); BENZODIAZEPINES NEG (NEG); COCAINE NEG (NEG); MARIJUANA NEG (NEG); OPIATES NEG (NEG); TRICYCLIC ANTIDEPRESSANTS NEG (NEG); U METHADONE NEG (NEG)
[2017-03-05 16:52] LABS: URINE SOURCE CATH
[2017-03-05 16:54] LABS: URINE APPEARANCE CLOUDY; URINE BLOOD TRACE (NEG); URINE COLOR DK YELLOW; URINE GLUCOSE NEG (NEG); URINE KETONE TRACE (NEG); URINE LEUKOCYTE ESTERASE NEG (NEG); URINE NITRATE NEG (NEG); URINE PROTEIN 1+ (NEG); URINE SPECIFIC GRAVITY 1.025 (1.003-1.035)
[2017-03-05 16:57] LABS: URINE BACTERIA AUWI NEG (NEGATIVE); URINE SQUAMOUS EPITHELIAL CELL OCC /[HPF]
[2017-03-05 17:02] LABS: CULTURE INDICATED? NO; URINE BILIRUBIN NEG (NEG)
[2017-03-05] MEDS ORDERED: ZESTRIL40 MG PO (17:13)
[2017-03-05] MEDS ORDERED: COUMADIN5 MG PO (17:13)
[2017-03-05] MEDS ORDERED: LASIX20 MG PO (17:13)
[2017-03-05] MEDS ORDERED: HYDRALAZINE HC100 MG PO (17:14)
[2017-03-05] MEDS ORDERED: AMITRIPTYLINE H25 MG PO (17:14)
[2017-03-05] MEDS ORDERED: LIPITOR80 MG PO (17:14)
[2017-03-05] MEDS ORDERED: PROTONIX PO (17:15)
[2017-03-05] MEDS ORDERED: NEURONTIN300 MG PO (17:15)
[2017-03-05] MEDS ORDERED: COLCRYS0.6 M2 PO (17:15)
[2017-03-05 18:05] LABS: AMYLASE 18 U/L (0-46); LIPASE 20 U/L (22-51)
[2017-03-05 22:51] LABS: CK TOTAL 59 IU/L (36-174)
[2017-03-06 06:39] LABS: CK TOTAL 58 IU/L (36-174)
[2017-03-06 07:08] LABS: BUN/CREATININE RATIO 15.71; CALCIUM SERUM 9.2 mg/dL (8.4-10.2); CREATININE SERUM 1.4 mg/dL (0.6-1.4); GLOM FILT RATE Estimated 56.2 mL/min (>60); POTASSIUM 4.3 mmol/L (3.5-5.1)
[2017-03-07 09:33] LABS: INR 1.1; PROTHROMBIN TIME (PATIENT) 11.2 SECONDS (9.6-11.5)
[2017-03-07 10:00] LABS: BUN/CREATININE RATIO 14.54; CALCIUM SERUM 8.7 mg/dL (8.4-10.2); CREATININE SERUM 1.1 mg/dL (0.6-1.4); GLOM FILT RATE Estimated 75.2 mL/min (>60); POTASSIUM 4.4 mmol/L (3.5-5.1)
[2017-03-08 05:37] LABS: INR 1.1; PROTHROMBIN TIME (PATIENT) 11.4 SECONDS (9.6-11.5)
[2017-03-08 05:38] LABS: HEMATOCRIT 37.2 % (38.0-50.0); HEMOGLOBIN 12.7 gm/dL (13.0-16.0); MEAN CELL VOLUME 78.8 FL (83-96); MEAN CORPUSCULAR HEMOGLOBIN 26.9 PG (28-34); MEAN CORPUSCULAR HGB CONC 34.2 g/dL (30-36); RED BLOOD COUNT 4.72 X10e (3.90-5.60); RED CELL DISTRIBUTION WIDTH 14.1 % (11.0-15.5); WHITE BLOOD COUNT 6.2 X10e3 (4.0-10.5)
[2017-03-08 06:29] LABS: BUN/CREATININE RATIO 10.9; CREATININE SERUM 1.1 mg/dL (0.6-1.4); GLOM FILT RATE Estimated 75.2 mL/min (>60); POTASSIUM 4.4 mmol/L (3.5-5.1)
[2017-03-08] MEDS ORDERED: LEVEMIR100 UNITS/ SUBQ (20:41)
[2017-03-08] MEDS ORDERED: TOPAMAX50 MG PO (20:45)
== END 2017-03-08 21:13 | disposition home health service (06) | DRG 683 ==
LOC: CED 14:49 → CEDOF 16:00 → C3A PCU 20:54
PROVIDERS: Emergency Medicine; Internal Medicine Cardiovascular Disease; Physician Assistant Medical
DX: N17.9 Acute kidney failure, unspecified (principal); F33.2 Major depressive disorder, recurrent severe without psychotic features; Q21.1 Atrial septal defect; I25.10 Atherosclerotic heart disease of native coronary artery without angina pectoris; Z95.1 Presence of aortocoronary bypass graft; I25.2 Old myocardial infarction; I10 Essential (primary) hypertension; E78.5 Hyperlipidemia, unspecified; Z86.73 Personal history of transient ischemic attack (TIA), and cerebral infarction without residual deficits; G47.33 Obstructive sleep apnea (adult) (pediatric); Z90.49 Acquired absence of other specified parts of digestive tract; Z79.01 Long term (current) use of anticoagulants; R51 Headache; F17.210 Nicotine dependence, cigarettes, uncomplicated; Z71.6 Tobacco abuse counseling; E86.0 Dehydration; E11.9 Type 2 diabetes mellitus without complications; I34.0 Nonrheumatic mitral (valve) insufficiency; Z91.19 Patient's noncompliance with other medical treatment and regimen; I95.1 Orthostatic hypotension; F39 Unspecified mood [affective] disorder; R26.0 Ataxic gait; R41.0 Disorientation, unspecified
CPT/HCPCS: 36415; 70450; 76705; 80048; 80076; 80307; 81003; 82140; 82150; 82550; 82553; 82947; 83036; 83605; 83690; 83735; 84443; 84484; 85025; 85027; 85610; 85730; 93005; 93880; 96361; 96374; 96375; 97161; 97166; 99291; C9113; G0480; J0132; J1650; J1815; J2060; J2405

== ENCOUNTER 2017-03-19 14:37 | Inpatient (IN) | payer OTHER ==
--- NOTE | ~2017-03-19 | CR72 ---
[facility] A Service of [facility] & [facility] RADIOLOGY TEXT RESULTS PATIENT: LANEY MATTA LOCATION: [facility] [id number] : [birth year] UNIT #: [id number] AGE: [address]: Lisseth Carmen MD SEX: M ORDER DR: [id number] [facility] [address] [facility]. [place], [place] [address] [id number] E MR#: [id number] Acc #: [id number] NAME: LANEY MATTA. : 1960 SEX: M STUDY DATE/TIME: 03/19/2017 13:06 UNIT: [facility] ROOM: STUDY DESCRIPTION: CR Chest Single View Portable Attending Physician: Miles Morataya M.D. Ordering Physician: Miles Morataya M.D. Primary Care Physician: Irma Dietrich M.D. MEDICAL IMAGING REPORT This report is preliminary unless electronic signature is present EXAM Portable chest. HISTORY Syncope today. shortness of breath. COMPARISON STUDIES 06/16/2016 FINDINGS There is some mild linear scarring in the left base. No acute-appearing infiltrate. Heart size normal. Prior sternotomy. Pacemaker. IMPRESSION No active disease. Dictated by... Marino Walsh M.D. THIS IS AN ELECTRONICALLY VERIFIED REPORT Marino Walsh M.D. at 03/19/2017 4:33 PM BLAYNE/huy TD: 03/19/2017 15:18 JOB #: [id number] MEDICAL IMAGING REPORT Page 1 of 1 COPY
--- NOTE | ~2017-03-19 | HP ---
Unit #: [id number] #: [id number] Patient: TERA RADFORD [id number] [address] [place], [place] [address] [id number] I MR#: [id number] NAME: TERA RADFORD. ROOM: 98336 Age: 56 Sex: M Admission Date: 03/19/2017 : 1960 Attending Physician: Lisseth Carmen M.D. Primary Care Physician: Irma Dietrich M.D. HISTORY AND PHYSICAL CHIEF COMPLAINT Syncopal episode. HISTORY OF PRESENTING ILLNESS Mr. Tera Radford is a 56-year-old male who was recently discharged from hospital on March 08, 2017 after doing extensive workup. He had a Cardiology consult and Neurology consult. All the workup was negative. Patient went to see Dr. Dietrich today and was sitting in the waiting room. He complained of severe headache in the middle of his head and then passed out. Patient's blood pressure was low, was sent to ER and patient is being admitted. Patient seems to have an elevated BUN and creatinine more than normal and has low blood pressure. According to the patient's this happens a lot. He follows up with Dr. Gao as outpatient but there has been no improvement. He does not complain of chest pain, does not complain of shortness of breath, does not complain of palpitations, no complaint of abdominal pain, no complaint of nausea or vomiting, no complaint of diarrhea. There is no history of loss of bowel or bladder. She has never seen him having any seizure. PAST MEDICAL HISTORY 1. History of sick sinus syndrome, status post pacemaker placement. 2. History of coronary artery disease with [place] in 2008, status post coronary artery bypass graft x4. 3. History of hypertension. 4. Hyperlipidemia. 5. Patent foramen ovale on Coumadin. 6. Right [employer] CVA. 7. Obstructive sleep apnea. 8. Tobacco abuse. 9. Hyperlipidemia. 10. Diabetes mellitus type 2. PAST SURGICAL HISTORY 1. History of CABG. 2. History of permanent pacemaker placement. 3. History of cholecystectomy. SOCIAL HISTORY Patient is and lives at home with his . He continues to smoke and he has a long history of smoking, no history of alcohol abuse or drug abuse. FAMILY HISTORY Unit #: [id number] #: [id number] Patient: TERA RADFORD Mother had coronary artery disease and had surgery. Patient's father with an HI. ALLERGIES No known drug allergies. HOME MEDICATIONS 1. Coumadin 5 mg p.o. daily. 2. Hydralazine 50 mg b.i.d. 3. Lipitor 80 mg q.h.s. 4. Amitriptyline 25 mg q.h.s. 5. Protonix 40 mg q.h.s. 6. Levemir 5 units subcu q.h.s. 7. Topamax 50 mg b.i.d. REVIEW OF SYSTEMS Patient is awake and alert and oriented x3, does not complain of seizure activity, does not complain of chest pain. He does complain of headache and occasional dizziness and he passes out a lot according to the patient's . The rest is as per history of presenting illness. PHYSICAL EXAMINATION GENERAL: Patient is lying in bed in room 10 in emergency room. VITAL SIGNS: Blood pressure right now is 108/80, on admission it was 90/70. Respiratory rate 18, pulse is 94, temperature 97.5, oxygen saturation is 98%. HEENT: Head is normocephalic. Eye movements are normal. NECK: Neck is supple. No carotid bruit. CHEST: Has fair air entry. No additional sounds. CVS: S1 and S2 positive. Pacemaker is in place. Regular rhythm. ABDOMEN: Abdomen is obese, soft. No tenderness, no rigidity, no rebound. EXTREMITIES: Negative edema. Pulses are palpable. CENTRAL NERVOUS SYSTEM: Awake, alert, oriented x3. No focal neurological deficit. DIAGNOSTIC STUDIES LABORATORY WORKUP: WBC 7.7, hemoglobin 14.5, hematocrit 42.8, platelet count of 218. PT and INR are 14.7 and 1.4. Sodium 137, potassium 4.4, chloride 104, BUN 24, creatinine 1.8. Liver enzymes are stable. Lactic acid 1.6. IMAGING: Chest x-ray done which shows no active disease. ASSESSMENT Patient is being admitted to telemetry unit with: 1. Syncope. 2. Generalized weakness. 3. Hypertension. 4. Mqrgd-wf-bqrcinn kidney disease. 5. History of cerebrovascular accident in the past, cardioembolic, 6. Sick sinus syndrome, status post pacemaker. 7. Coronary artery disease, status post coronary artery bypass grafting. 8. Diabetes mellitus type 2. 9. Tobacco abuse. 10. Hyperlipidemia. PLAN Admit to telemetry unit. Fall precautions will be done. Orthostatic Unit #: [id number] #: [id number] Patient: TERA RADFORD blood pressure will be checked. Blood pressure medications are on hold. IV fluids normal saline at 125 mL an hour. Accu-Chek a.c. and h.s. with insulin sliding scale low dose protocol. Dr. Ponce to consult. Labs in the morning. Lovenox 40 mg subcu daily. PT and INR in the a.m. Plan of care has been discussed with the patient's at length. Dictated by Malcom Castaneda/wood TD: 03/19/2017 16:54 JOB #: [id number] HISTORY AND PHYSICAL Page 1 of 1 X Lisseth Carmen MD X HISTORY AND PHYSICAL
--- NOTE | ~2017-03-19 | DS ---
Unit #: [id number] #: [id number] Patient: LANEY MATTA 100214 [address] [address] [id number] I MR#: [id number] NAME: LANEY MATTA. ROOM: [facility] Age: 56 Sex: M Admission Date: 03/19/2017 : 1960 Discharge Date: Attending Physician: Lisseth Carmen M.D. Primary Care Physician: Irma Dietrich M.D. DISCHARGE SUMMARY PLANNED DATE OF DISCHARGE 03/21/2017 DISCHARGE DIAGNOSES 1. Syncope. 2. Headache which has resolved. 3. History of coronary artery disease and sick sinus syndrome, status post coronary artery bypass graft, status post permanent pacemaker. 4. Hypertension. 5. Dyslipidemia. 6. History of cerebrovascular accident. 7. Diabetes type 2. 8. Obstructive sleep apnea. 9. Patent foramen ovale, on chronic anticoagulation. DISCHARGE MEDICATIONS 1. Protonix 40 mg daily. 2. Levemir 5 units subcu q.h.s. 3. Lipitor 80 mg q.h.s. 4. Inderal 10 mg p.o. b.i.d. 5. Prozac 20 mg daily. 6. Warfarin 5 mg daily. 7. Tylenol p.r.n. CONSULTS DONE THIS HOSPITAL STAY Cardiology, Dr. Payan. LABS AND DIAGNOSTICS AND PROCEDURES DONE THIS HOSPITAL STAY 1. Chest x-ray on admission no active disease. 2. CT of the head without the contrast stable appearance, evidence of old right posterior cerebral artery distribution infarct with encephalomalacia. HISTORY OF PRESENT HOSPITAL STAY Please refer to H and P done by my colleague for initial presentation on this gentleman. ACTIVE PROBLEMS AND DIAGNOSES Syncope, status post cardiology evaluation, some of the blood pressure medications have been discontinued. It was thought that it was secondary to postural hypotension. Currently stable from a cardiac standpoint to be discharged. Unit #: [id number] #: [id number] Patient: LANEY MATTA Headache which has resolved, status post negative CT. History of coronary artery disease, status post CABG. History of sick sinus syndrome, on chronic anticoagulation, status post permanent pacemaker. Hypertension. Dyslipidemia, continue statin. History of CVA in the past with the history of patent foramen ovale on anticoagulation. Diabetes type 2, restart home dose of Levemir. Subtherapeutic INR, currently at 1.4. Will give extra dose of 2.5 mg of Coumadin, a total of 7.5 mg today. Will asked [facility] to follow patient at home to check INR in the morning. Result needs to be relayed to cardiology or primary care physician service. FOLLOWUP 1. The patient is to follow up with primary care physician in two to three days. 2. Outpatient followup with cardiology. NOTE Please note that the patient's discharge is pending PT/OT evaluation. If the patient passes PT/OT eval without needing subacute rehab patient will be discharged home today. Dictated by... Neto Clakre M.D. OC/wood TD: 03/21/2017 17:14 JOB #: [id number] DISCHARGE SUMMARY Page 1 of 1 X Neto Clarke MD X DISCHARGE SUMMARY
--- NOTE | ~2017-03-19 | EKG ---
PATIENT: LANEY MATTA UNIT #: [id number] Ventricular Rate: 97 BPM Atrial Rate: 77 BPM P-R Interval: 182 ms QRS Duration: 166 ms Q-T Interval: 432 ms QTC Calculation(Bezet): 548 ms P [place]: 54 degrees Calculated R [place]: 103 degrees Calculated T [place]: 172 degrees Diagnosis Line: Normally functioning AV sequential pacemaker Diagnosis Line: Abnormal ECG Diagnosis Line: When compared with ECG of 19-MAR-2017 13:06, Diagnosis Line: No significant change was found Diagnosis Line: Confirmed by CLAIRE BURGESS MD ([id number]) on Diagnosis Line: 03/20/2017 10:23:58 PM INTERPRETING MD: RJ
--- NOTE | ~2017-03-19 | EKG ---
PATIENT: LANEY MATTA UNIT #: [id number] Ventricular Rate: 80 BPM Atrial Rate: 91 BPM P-R Interval: 192 ms QRS Duration: 188 ms Q-T Interval: 450 ms QTC Calculation(Bezet): 519 ms P [place]: 19 degrees Calculated R [place]: -57 degrees Calculated T [place]: 110 degrees Diagnosis Line: Atrial-sensed ventricular-paced rhythm Diagnosis Line: Abnormal ECG Diagnosis Line: When compared with ECG of 06-MAR-2017 07:17, Diagnosis Line: Electronic ventricular pacemaker has replaced Diagnosis Line: Sinus rhythm Diagnosis Line: Confirmed by MIHAI SCHWARTZ MD ([id number]) on 03/19/2017 Diagnosis Line: 10:29:43 PM INTERPRETING MD: LANA GORDILLO
--- NOTE | ~2017-03-19 | CT71 ---
[facility] A Service of [facility] & [facility] RADIOLOGY TEXT RESULTS PATIENT: LANEY MATTA LOCATION: [facility] 556-01 : 62 UNIT #: [id number] AGE: [address]: Lisseth Carmen MD SEX: M ORDER DR: [id number] [facility] [address] [facility]. [place], [place] [address] [id number] I MR#: [id number] Acc #: [id number] NAME: LANEY MATTA. : 1960 SEX: M STUDY DATE/TIME: 03/19/2017 14:55 UNIT: CEDOF ROOM: 44924 STUDY DESCRIPTION: CT Head Wo Contrast Attending Physician: Lisseth Carmen M.D. Ordering Physician: Miles Morataya M.D. Primary Care Physician: Irma Dietrich M.D. MEDICAL IMAGING REPORT This report is preliminary unless electronic signature is present EXAM Head CT without HISTORY Syncope, confusion, dizziness, weakness since this morning. History of hypertension, diabetes and stroke/TIA. No cancer history. TECHNIQUE This CT exam was performed with one or more of the following radiation dose reduction techniques: automatic exposure control, adjustment of mA and/or kV according to patient size, and iterative reconstruction. FINDINGS Routine noncontrast head CT is reviewed. Comparison study is from 03/05/2017. There is no displaced calvarial fracture. The visualized mastoid air cells and paranasal sinuses are essentially clear. There are vascular calcifications at the base of the brain. There is a focus of encephalomalacia again seen at the right medial occipital lobe posteromedial right temporal lobe consistent with an old insult to the right posterior cerebral artery distribution. White matter low-attenuation also seen asymmetrically worse right mcmahan radiata to centrum semiovale and extending into the right basal ganglia, also chronic. White matter low-attenuation in the bilateral anterior basal ganglia to frontal periventricular white matter again seen. No acute intracranial hemorrhage or extraaxial fluid collection. No midline shift. There is at least ectasia tip of the basilar. Component of vertebrobasilar dolichoectasia present. There is a MR angiogram intracranial from 06/16/2016. The configuration at the tip of the basilar is not changed from that time on the source images and the appearance is consistent with some ectasia but no saccular aneurysm is identified. [facility] A Service of [facility] & [facility] RADIOLOGY TEXT RESULTS PATIENT: LANEY MATTA LOCATION: [facility] 556- : [birth year] UNIT #: [id number] AGE: [address]: Lisseth Carmen MD SEX: M ORDER DR: IMPRESSION Stable appearance of the brain. Again there is evidence for an old right posterior cerebral artery distribution infarct with encephalomalacia as well as fairly extensive probable sequelae of small vessel disease not appreciably changed. 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 If there is clinical concern for acute CVA, followup imaging is recommended preferably with MRI if the patient is candidate. Dictated by... Dina King M.D. THIS IS AN ELECTRONICALLY VERIFIED REPORT Dina King M.D. at 03/20/2017 7:30 AM REMY/jose luis TD: 03/19/2017 17:16 JOB #: [id number] MEDICAL IMAGING REPORT Page 1 of 1 COPY
[2017-03-19 13:11] LABS: BASOPHIL% 0.4 % (0-2.5); DIFF IND NO; EOSINOPHIL# 0.1 X10e3 (0-0.7); EOSINOPHIL% 1.9 % (0.0-7.0); HEMATOCRIT 42.8 % (38.0-50.0); HEMOGLOBIN 14.5 gm/dL (13.0-16.0); LYMPHOCYTE# 2.7 X10e3 (1.0-3.5); LYMPHOCYTE% 35.3 % (17.0-45.0); MEAN CELL VOLUME 80.1 FL (83-96); MEAN CORPUSCULAR HEMOGLOBIN 27.1 PG (28-34); MEAN CORPUSCULAR HGB CONC 33.8 g/dL (30-36); MEAN PLATELET VOLUME 9.7 FL (6.5-11.5); MONOCYTE# 0.5 X10e3 (0-1.0); NEUTROPHIL# 4.3 X10e3 (1.5-7.1); NEUTROPHIL% 55.4 % (40-75); PLATELET COUNT 218 X10e3 (140-420); RED BLOOD COUNT 5.34 X10e (3.90-5.60); RED CELL DISTRIBUTION WIDTH 14.6 % (11.0-15.5); WHITE BLOOD COUNT 7.7 X10e3 (4.0-10.5)
[2017-03-19 13:26] LABS: INR 1.4; PROTHROMBIN TIME (PATIENT) 14.7 SECONDS (9.6-11.5)
[2017-03-19 13:38] LABS: ALBUMIN SERUM 4.1 g/dL (3.5-5.0); BILIRUBIN, DIRECT 0.1 mg/dL (0.0-0.2); BILIRUBIN,INDIRECT 0.5 mg/dL (0.0-0.9); BILIRUBIN,TOTAL 0.6 mg/dL (0.2-2.0); BUN/CREATININE RATIO 13.33; CALCIUM SERUM 9.4 mg/dL (8.4-10.2); CREATININE SERUM 1.8 mg/dL (0.6-1.4); GLOM FILT RATE Estimated 41.4 mL/min (>60); POTASSIUM 4.4 mmol/L (3.5-5.1); PROTEIN TOTAL SERUM 7.7 g/dL (6.0-8.3)
[~2017-03-19 14:37] MED LIST changes: +AMITRIPTYLINE H25 MG PO; +COLCRYS0.6 M2 PO; +LEVEMIR100 UNITS/ SUBQ; +NEURONTIN300 MG PO; +PROTONIX PO; +TOPAMAX50 MG PO; +ZESTRIL40 MG PO
[2017-03-20 05:11] LABS: HEMATOCRIT 36.2 % (38.0-50.0); MEAN CELL VOLUME 80.2 FL (83-96); MEAN CORPUSCULAR HEMOGLOBIN 27.2 PG (28-34); MEAN CORPUSCULAR HGB CONC 33.9 g/dL (30-36); MEAN PLATELET VOLUME 9.7 FL (6.5-11.5); RED BLOOD COUNT 4.51 X10e (3.90-5.60); RED CELL DISTRIBUTION WIDTH 14.6 % (11.0-15.5); WHITE BLOOD COUNT 6.3 X10e3 (4.0-10.5)
[2017-03-20 05:24] LABS: INR 1.5; PROTHROMBIN TIME (PATIENT) 15.5 SECONDS (9.6-11.5)
[2017-03-20 05:29] LABS: HEMOGLOBIN 12.3 gm/dL (13.0-16.0)
[2017-03-20 06:24] LABS: BUN/CREATININE RATIO 15.38; CALCIUM SERUM 8.6 mg/dL (8.4-10.2); CREATININE SERUM 1.3 mg/dL (0.6-1.4); GLOM FILT RATE Estimated 61.4 mL/min (>60); POTASSIUM 4.6 mmol/L (3.5-5.1)
[2017-03-21 05:31] LABS: INR 1.4; PROTHROMBIN TIME (PATIENT) 15.4 SECONDS (9.6-11.5)
[2017-03-21] MEDS ORDERED: TYL325 PO (17:57)
[2017-03-21] MEDS ORDERED: PROZAC10 M1 PO (17:58)
[2017-03-21] MEDS ORDERED: INDERAL20 MG PO (17:59)
== END 2017-03-21 19:00 | disposition home or self-care (01) | DRG 312 ==
LOC: CED 14:37 → CEDOF 15:35 → C5B 19:20
PROVIDERS: Emergency Medicine; Internal Medicine Cardiovascular Disease; Physician Assistant Medical
DX: I95.1 Orthostatic hypotension (principal); N17.9 Acute kidney failure, unspecified; E11.22 Type 2 diabetes mellitus with diabetic chronic kidney disease; Q21.1 Atrial septal defect; I49.5 Sick sinus syndrome; R51 Headache; I12.9 Hypertensive chronic kidney disease with stage 1 through stage 4 chronic kidney disease, or unspecified chronic kidney disease; N18.9 Chronic kidney disease, unspecified; I25.10 Atherosclerotic heart disease of native coronary artery without angina pectoris; Z95.1 Presence of aortocoronary bypass graft; Z95.0 Presence of cardiac pacemaker; E78.5 Hyperlipidemia, unspecified; Z79.4 Long term (current) use of insulin; G47.33 Obstructive sleep apnea (adult) (pediatric); Z79.01 Long term (current) use of anticoagulants; F17.210 Nicotine dependence, cigarettes, uncomplicated; I25.2 Old myocardial infarction; E86.0 Dehydration; Z86.73 Personal history of transient ischemic attack (TIA), and cerebral infarction without residual deficits; Z82.49 Family history of ischemic heart disease and other diseases of the circulatory system
CPT/HCPCS: 36415; 70450; 71010; 80048; 80076; 82947; 83605; 84484; 85025; 85027; 85610; 87040; 93005; 96360; 97167; 99285; J1650; J1815

== ENCOUNTER 2017-05-27 15:27 | Inpatient (IN) | payer OTHER ==
--- NOTE | ~2017-05-27 | CT71 ---
[facility] A Service of [facility] RADIOLOGY TEXT RESULTS PATIENT: LANEY MATTA LOCATION: C5 550-01 : 62 UNIT #: [id number] AGE: [address]: Lisseth Carmen MD SEX: M ORDER DR: [id number] [facility] [address] [facility] [place], [place] [address] [id number] I MR#: [id number] #: [id number] NAME: LANEY MATTA. : 1960 SEX: M STUDY DATE/TIME: 05/27/2017 16:11 UNIT: CEDOF ROOM: 60430 STUDY DESCRIPTION: CT Head Wo Contrast Attending Physician: Lisseth Carmen M.D. Ordering Physician: Arnaud Fritz M.D. Primary Care Physician: Irma Dietrich M.D. MEDICAL IMAGING REPORT This report is preliminary unless electronic signature is present EXAM CT without contrast, 05/27/2017 HISTORY Severe headache today. Patient on Coumadin. History of stroke. Multiple falls today. This CT exam was performed with one or more of the following radiation dose reduction techniques: automatic exposure control, adjustment of mA and/or kV according to patient size, and iterative reconstruction. FINDINGS Multiple axial images were obtained from the skull base to vertex without intravenous contrast administration. There is generalized enlargement of the ventricles and sulci characteristic of atrophy and there is periventricular microvascular white matter ischemic change. There is an old infarct in the medial right occipital lobe. Old lacunar infarct involving the right lentiform nucleus. There is no midline shift. No mass or mass effect, hemorrhage or acute infarct. The visualized paranasal sinuses are clear. IMPRESSION Generalized atrophy and periventricular microvascular white matter ischemic change. Old infarcts as noted above. No acute intracranial abnormality. Dictated by... Paul Hauser M.D. THIS IS AN ELECTRONICALLY VERIFIED REPORT [facility] A Service of [facility] & [facility] RADIOLOGY TEXT RESULTS PATIENT: LANEY MATTA LOCATION: C5 [id number] : [birth year] UNIT #: [id number] AGE: [address]: Lisseth Carmen MD SEX: M ORDER DR: Paul Hauser M.D. at 05/28/2017 2:10 PM MATTHIEU/darryl TD: 05/28/2017 04:01 JOB #: [id number] MEDICAL IMAGING REPORT Page 1 of 1 COPY
--- NOTE | ~2017-05-27 | EE ---
Unit #: [id number] #: [id number] Patient: LAENY MATTA [id number] [address] [address] [id number] I MR#: [id number] NAME: LANEY MATTA. : 1960 SEX: M STUDY DATE/TIME: 05/27/2017 UNIT: [facility] ROOM: 564 STUDY DESCRIPTION: EEG Attending Physician: Lisseth Carmen M.D. Primary Care Physician: Irma Dietrich M.D. NEURODIAGNOSTICS REPORT EXAM EEG. TECH On License Of [facility]. REASON FOR STUDY Seizures. TECHNICAL INFORMATION This is a routine EEG performed using the standard international 10-20 system of electrode placement. Photic stimulation was performed. Hyperventilation was also performed. REPORT Throughout the entire study, the best background rhythm seen was approximately 10 Hz. This rhythm is seen in both posterior head regions symmetrically and does attenuate to eye opening and closure. Hyperventilation was performed, which did not appear to elicit any abnormal buildup. Photic stimulation was also performed, which did not elicit any epileptiform abnormalities. A good photic driving response was seen. Throughout the entire study there were no electrographic seizures recorded, nor were there any independent epileptiform abnormalities seen. No sleep was recorded during the EEG. INTERPRETATION This is a normal awake EEG. A normal EEG does not rule out the possibility of a seizure disorder. Clinical correlation is advised. Dictated by... Kar Gao II., M.D. GWS/cherri TD: 05/31/2017 11:48 JOB #: [id number] Unit #: [id number] #: [id number] Patient: LANEY MATTA NEURODIAGNOSTICS REPORT Page 1 of 1 X NEURODIAGNOSTICS REPORT
--- NOTE | ~2017-05-27 | EKG ---
PATIENT: LANEY MATTA UNIT #: [id number] Ventricular Rate: 64 BPM Atrial Rate: 64 BPM P-R Interval: 376 ms QRS Duration: 114 ms Q-T Interval: 420 ms QTC Calculation(Bezet): 433 ms P [place]: 13 degrees Calculated R [place]: 39 degrees Calculated T [place]: -125 degrees Diagnosis Line: Atrial-paced rhythm Diagnosis Line: Sinus rhythm with 1st degree A-V block Diagnosis Line: ST and T wave abnormality, consider inferior Diagnosis Line: ischemia Diagnosis Line: ST and T wave abnormality, consider anterolateral Diagnosis Line: ischemia Diagnosis Line: Abnormal ECG Diagnosis Line: When compared with ECG of 20-MAR-2017 05:43, Diagnosis Line: Previous ECG has undetermined rhythm, needs review Diagnosis Line: Left bundle branch block is no longer Present Diagnosis Line: Confirmed by MIHAI SCHWARTZ MD ([id number]) on 05/30/2017 Diagnosis Line: 2:52:58 PM INTERPRETING MD: LANA GORDILLO
--- NOTE | ~2017-05-27 | CO ---
Unit #: [id number] #: [id number] Patient: LANEY MATTA [id number] [facility] [address] [place] [facility]. [place], [place] [address] [id number] Jose Alfredo MR#: [id number] NAME: LNAEY MATTA. ROOM: 564 Age: 56 Sex: M Admission Date: 05/27/2017 : 1960 Attending Physician: Lisseth Carmen M.D. Primary Care Physician: Irma Dietrich M.D. Consultation Date: 05/28/2017 CONSULTATION REPORT REASON FOR CONSULTATION Headache and confusion. PATIENT IDENTIFICATION This is a 56-year-old right-handed white male, who was evaluated in room 550 at [facility]. SOURCE OF INFORMATION The patient but more than that previous records and I have seen this patient several times and I reviewed those records and also discussed it with Dr. Carmen and also discussed with the patient's . PROBLEM LIST 1. Prior strokes likely cardioembolic. He is on anticoagulation. He has right JUSTICE COURT DEPUTY CLERK stroke, left-sided vision changes. 2. Prior bradycardic episodes. He is now status post pacemaker. 3. Hypertension. 4. Hyperlipidemia. 5. Type 2 diabetes mellitus. 6. PFO with [id number] shunt. 7. Tobacco abuse and I believe he still continues 2 to 4 packs a day. 8. Obstructive sleep apnea. 9. Chronic headaches, for which he is being followed by Dr. Gao. 10. Cholecystectomy. 11. Coronary artery bypass grafting. 12. Possible noncompliance, possible syncope. He has mood disorder and history of major depressive disorder. HISTORY OF PRESENT ILLNESS This is a 56-year-old gentleman, who is actually known to me, who has had problems in the past. He has had similar problems with headaches and syncopal type episode. He comes back confused for about 4 days now. He is a bit better right now, but a lot is going on. He had confusion. He is looking depressed. He tells people he has headaches and then he tells people he does not have headaches. He has been seeing Dr. Gao for that. He has blurred vision, but his says that has been going on for 6 months. He has had right JUSTICE COURT DEPUTY CLERK infarct, so possible left-sided visual changes. Head CT was okay. I cannot do an MRI. His INR was 2.0. The only thing I am really seeing which is bothersome is that he has significant hypertension. When he came in, his blood pressure was 184 systolic and 103 diastolic. Earlier at noon today his blood pressure was still 185 systolic and 109 diastolic. His labs really do not look that bad. His sodium was 132 though. His INR was 2.0, it is 1.9 today. Cardiology is seeing him. Psych has been consulted and he is apparently Unit #: [id number] #: [id number] Patient: LANEY MATTA confused and delirious and in and out. He sometimes tell people he has headaches, other time he says he does not have much headache and he is feeling much better and that is what I saw when I went to his room at 3:00 p.m. Nothing focal was reported. He is more confused and delirium than any focal abnormalities like weakness or speech problems and is passing out. He is very questionable. Last time when I saw him, I requested if he would be put on Topamax, but he did not take it for some reason. He is seeing Dr. Gao, but I do not have any information of what else he is taking and his syncopal episodes are very nonspecific. As I mentioned before, I have seen him for the same problems in the past. No head injury, but he is scratching himself and he has very strange affect and skin lesions. To my knowledge, there is no recent change in medication. Nothing suggesting COMMUNICATIONS PROGRAM MANAGER infection type picture and this has been going on off and on, so I really doubt that there is active COMMUNICATIONS PROGRAM MANAGER infection going on for almost a year now. PAST MEDICAL HISTORY As discussed above. PAST SURGICAL HISTORY As discussed above. ALLERGIES None. HOME MEDICATIONS Coumadin, Lipitor, Protonix, Levemir, Tylenol, Prozac, Inderal. FAMILY HISTORY Mom and dad both had coronary artery disease. SOCIAL HISTORY Looks like he is staying at home. He is and lives with his . He is a smoker and continues to smoke. No alcohol or drug use known to me. REVIEW OF SYSTEMS Very strange. He is delirious, so review of systems is very strange, but I asked him specifically. He said he did not have any headaches. He has chronic vision changes. No chest pain. No nausea, vomiting, diarrhea. No neck pain. No extremity problems. Confused. He has skin lesions and scratches. PHYSICAL EXAMINATION VITAL SIGNS: Temperature 98 degrees Fahrenheit, pulse 61, respirations 20, blood pressure 161/96. His weight is 219 pounds. BMI is 28. O2 sats were 93% to 97%. NEUROLOGIC: The patient is awake. He is alert. He is oriented to himself and his and he knows he is at the hospital. He cannot tell me the date and the day and his stated that he never did. Cranial examination, it looks like he has significant left homonymous hemianopia, but he was able to identify my hand, spoon, and other objects. Pupils are sluggishly reactive. Eye movements otherwise seem to be conjugate. I did not see any ptosis. I did not see any nystagmus. Extraocular movements seemed to be intact. Tongue was midline. I could Unit #: [id number] #: [id number] Patient: LANEY MATTA Polo not visualize his oropharynx or uvula. Head turning was spontaneous. Motor examination, he has normal bulk and tone. Strength is at least 5-/5. Sensory examination intact for soft touch and pain sensation. No extinction was seen. Romberg was not evaluated. Gait examination was deferred. I could not get any reflexes. Toes are equivocal. DIAGNOSTIC STUDIES LABORATORY RESULTS: Reviewed. IMAGING STUDIES: Reviewed. IMPRESSION 1. Acute on chronic cognitive changes and this has been going on for months. 2. Acute on chronic headaches which comes and goes and again that has been going on for months. 3. Questionable syncopal episode which is being investigated in the past by Cardiology may be when he has a pacemaker because previously he had bradycardia. At this time, I am not sure really he had syncopal episode. 4. Delirium. 5. Possible hypertensive encephalopathy. 6. CT negative for anything acute and this has been going on for about 4 days, so something major probably what I have seen it by now. We cannot do an MRI. He was put on Topamax, but he is not taking it. I may consider Elavil. I may consider Keppra and see how things go. The goal is to bring his blood pressure down. Supportive care and see how things returned goods repairer. I am not seeing anything primary neurologic. I think it is combination of possible delirium, could be early dementia, mood disorder, hypertensive encephalopathy. Cannot rule out multi-infarct dementia and probably it is going to be a combination of all of the above. I will follow him and see how things go. I will keep you informed. I am going to try to get an EEG and also give Keppra trial and see how things go. Discussed with Dr. Carmen several times and also discussed with his . Call me for any other questions, issues, or concerns. Dictated by... Malcom Balderas/yogesh TD: 05/29/2017 05:41 JOB #: [id number] Unit #: [id number] #: [id number] Patient: LANEY MATTA Polo CONSULTATION REPORT Page 1 of 1 X Pedro Jordan MD X CONSULTATION REPORT
--- NOTE | ~2017-05-27 | EKG ---
PATIENT: LANEY MATTA UNIT #: [id number] Ventricular Rate: 61 BPM Atrial Rate: 61 BPM P-R Interval: 388 ms QRS Duration: 122 ms Q-T Interval: 458 ms QTC Calculation(Bezet): 461 ms P [place]: 27 degrees Calculated R [place]: 19 degrees Calculated T [place]: -137 degrees Diagnosis Line: Sinus rhythm with 1st degree A-V block Diagnosis Line: Possible Left atrial enlargement Diagnosis Line: Non-specific intra-ventricular conduction delay Diagnosis Line: ST and Marked T wave abnormality, consider Diagnosis Line: anterolateral ischemia Diagnosis Line: Abnormal ECG Diagnosis Line: When compared with ECG of 27-MAY-2017 16:26, Diagnosis Line: (unconfirmed) Diagnosis Line: No significant change was found Diagnosis Line: Confirmed by MIHAI SCHWARTZ MD ([id number]) on 05/30/2017 Diagnosis Line: 3:01:26 PM INTERPRETING MD: LANA GORDILLO
--- NOTE | ~2017-05-27 | CO ---
Unit #: [id number] #: [id number] Patient: LANEY MATTA [id number] [address] [place], [place] [address] [id number] I MR#: [id number] NAME: LANEY MATTA. ROOM: 564 Age: 56 Sex: M Admission Date: 05/27/2017 : 1960 Attending Physician: Lisseth Carmen M.D. Primary Care Physician: Irma Dietrich M.D. CONSULTATION REPORT REASON FOR CONSULTATION Syncope. HISTORY OF PRESENT ILLNESS This is a 56-year-old white male, who is known to Dr. Payan, who has a history of coronary artery disease, where he underwent coronary artery bypass graft in 2008. He is known to have sick sinus syndrome and has permanent pacemaker implanted. He has a PFO and is on anticoagulation with Coumadin. The patient is admitted with altered mental status and syncopal episode. The patient is a poor historian and no family is available at that time. He states he is falling frequently at home, but he does not know much of the details. He has a headache when the episodes occur. He reports no loss of bowel or bladder. Denies chest pain, shortness of breath, or palpitations. He said his "pacemaker shocks him." He has been seen at least 2 other times with similar complaints. He has obvious facial bruises that he says occurs when he was scratching his face. He denies any visual disturbances or unilateral weakness. PAST MEDICAL HISTORY 1. 2D echocardiogram on 06/16/2016 showed an ejection fraction equal to 50%. PFO was present. Jyee-wq-ajfamcfr mitral regurgitation, mild tricuspid regurgitation, fjji-it-enkdwlqq atherosclerosis of the aorta. 2. Myocardial infarction in 2008, status post coronary artery bypass graft. 3. Lexiscan Cardiolite stress test in December 2015 shows suspicion for old small inferolateral myocardial infarction. No ischemia. Ejection fraction of 40%. 4. Hypertension. 5. Hyperlipidemia. 6. Diabetes mellitus, type 2. 7. Sick sinus syndrome, status post dual-chamber [employer] permanent pacemaker on 08/01/2015. 8. PFO, on anticoagulation Coumadin. 9. History of right GLUCOSE AND SYRUP WEIGHER cerebrovascular accident. 10. Obstructive sleep apnea. 11. Bilateral carotid stenosis less than 50%. 12. Frequent falls. 13. Headache. 14. Active smoker. PAST SURGICAL HISTORY 1. Coronary artery bypass graft. Unit #: [id number] #: [id number] Patient: LANEY MATTA 2. Permanent pacemaker. 3. Cholecystectomy. SOCIAL HISTORY The patient is disabled and . He still smokes, but could not tell me the amount. He denies illicit drug or alcohol use. FAMILY HISTORY Father from myocardial infarction in his 60s. His mother had coronary artery bypass surgery. ALLERGIES No known drug allergies. HOME MEDICATIONS Lipitor 80 mg q.h.s., Protonix 40 mg daily, acetaminophen 650 mg q.4 hours p.r.n., warfarin 7.5 mg q.h.s., Prozac 10 mg daily, Inderal 60 mg b.i.d., hydralazine 100 mg b.i.d., Amaryl 4 mg b.i.d., and Prinivil 10 mg daily. REVIEW OF SYSTEMS Ten-point review of system is negative except details stated in HPI. PHYSICAL EXAMINATION VITAL SIGNS: Blood pressure 185/109 to 161/91, heart rate 61, temperature 98.0. GENERAL: This is a 56-year-old obese, white male, who is in no acute distress. NEUROLOGIC: He is awake, alert, but noted for some confusion and forgetfulness. There are no obvious focal weaknesses. NECK: Trachea is midline. No thyromegaly or lymphadenopathy. No jugular venous distention. Carotid upstrokes are normal. HEART: S1 and S2. Heart sounds are normal. No murmurs. No rubs or clicks. Regular rate and rhythm. LUNGS: Clear without rales, rhonchi, or wheeze. ABDOMEN: Soft and obese with bowel sounds present. EXTREMITIES: Without leg edema. SKIN: Warm and dry. DIAGNOSTIC STUDIES LABORATORY RESULTS: Hemoglobin 13.3, hematocrit 41.6, platelet count 229, white count 8.1. Sodium 132, potassium 4.1, BUN 14, creatinine 1.1, glucose 144. TSH 1.2 in February 2017. INR 1.19. IMAGING STUDIES: Chest x-ray shows no active disease. CARDIOVASCULAR STUDIES: EKG shows normal sinus rhythm with a first-degree AV block with anterolateral and inferior ischemia noted on previous EKGs. IMPRESSION 1. Altered mental status. 2. Recurrent syncope with loss of consciousness. 3. Severe headache. 4. Frequent falls. 5. Questionable pacemaker malfunction. 6. History of coronary artery disease, status post coronary artery bypass graft. 7. Stable angina. 8. Permanent pacemaker for sick sinus syndrome. Unit #: [id number] #: [id number] Patient: LANEY MATTA 9. History of cerebrovascular accident. 10. Uncontrolled hypertension. PLAN 1. Cardiology was consulted for recurrent syncope. We will check orthostatics to rule out postural hypotension. 2. Permanent pacemaker will be checked for arrhythmias and questionable malfunction. 3. Continue propranolol, but increase lisinopril for better control of blood pressure. Hydralazine has been increased per primary care. 4. Because of the patient's frequent falls, he may no longer be a candidate for long-term anticoagulation, which puts his risk for stroke in higher rate because of patent foramen ovale. We will discuss with . 5. No significant carotid disease per carotid ultrasound in February. 6. Neurology is to see the patient. 7. Further recommendations to follow. Thank you for allowing us to assist with this patient's care. Dictated by... Laura MeyerPBautistaRBautistaN. for Malcom Cruz/yogesh TD: 05/29/2017 04:03 JOB #: [id number] CC: Irma Dietrich M.D. CONSULTATION REPORT Page 1 of 1 X Hany Felipe APRN X CONSULTATION REPORT
--- NOTE | ~2017-05-27 | DS ---
Unit #: [id number] #: [id number] Patient: LANEY MATTA [id number] [address] [address] [id number] I MR#: [id number] NAME: LANEY MATTA. ROOM: 564 Age: 56 Sex: M Admission Date: 05/27/2017 : 1960 Discharge Date: 05/31/2017 Attending Physician: Lisseth Carmen M.D. Primary Care Physician: Irma Dietrich M.D. DISCHARGE SUMMARY DISCHARGE DIAGNOSES 1. Altered mental status, resolved. 2. Recurrent syncope, status post evaluation per Neurology, status post evaluation per Cardiology. Cleared by both services to be discharged. 3. Multiple falls, status post Physical Therapy and Occupational Therapy evaluation. Stable for discharge. Off of Coumadin per Cardiology. 4. Hypertension. 5. History of coronary artery disease. 6. B12 deficiency. 7. History of cerebrovascular accident. 8. Heavy tobacco use. Counseled on the importance of quitting tobacco on multiple occasions during this hospitalization. He is being discharged on a nicotine patch. DISCHARGE MEDICATIONS 1. Tylenol p.r.n. 2. Keppra 500 mg b.i.d. 3. Prozac 10 mg p.o. daily. 4. Lipitor 80 mg at bedtime. 5. Nicotine patch 21 mg daily. 6. Inderal 60 mg b.i.d. 7. Hydralazine 100 mg t.i.d. 8. Zestril 20 mg daily. 9. Percocet 5/325 at 1 or 2 tablets q.6 hours p.r.n. for pain. 10. Protonix 40 daily. 11. Amaryl 4 mg b.i.d. 12. B12 shot 1000 mcg subcutaneous daily for 7 more days. DISPOSITION Home. FOLLOWUP With primary care physician in two to three days. CONSULTS DURING THIS HOSPITAL STAY 1. Dr. Payan, Cardiology. 2. Dr. Jordan, Neurology. LABS, DIAGNOSTICS, AND PROCEDURES DURING THIS HOSPITAL STAY 1. CT head on admission showed generalized atrophy, old infarcts, and no acute intracranial abnormality. 2. Chest x-ray showed no acute findings and no active disease. HISTORY OF PRESENT HOSPITAL STAY Unit #: [id number] #: [id number] Patient: LANEY MATTA Please refer to History and Physical done by my colleague for initial presentation on this gentleman. ACTIVE PROBLEMS DIAGNOSED Altered mental status, status post Neurology evaluation, status post negative CT. Patient was started on Keppra. Patient is to follow up with Dr. Gao, Neurology, as an outpatient. They are suggesting to do an EEG as an outpatient. Recurrent syncope. Again, per Neurology, stable for discharge. Status post Cardiology evaluation, status post interrogation of permanent pacemaker. Stable from Cardiology standpoint to be discharged. Multiple falls, status post PT/OT evaluation and cleared to be discharged home. Continue with fall precautions. Coumadin was stopped per Cardiology. Hypertension. Continue hydralazine and increase the lisinopril. Vitamin B12 deficiency. Continue subcutaneous B12 shots for seven more days for a total of 10 days. Outpatient followup with his primary care physician. History of CVA. Continue current medications. He is on statin. Will start him on baby aspirin. Heavy tobacco use. Counseled on the importance of quitting tobacco. Discharging on nicotine patch. Dictated by... Neto Clarke M.D. STACI/kaylene TD: 05/31/2017 18:01 JOB #: [id number] DISCHARGE SUMMARY Page 1 of 1 X Neto Clarke MD X DISCHARGE SUMMARY
--- NOTE | ~2017-05-27 | CR72 ---
[facility] A Service of [facility] & [facility] RADIOLOGY TEXT RESULTS PATIENT: LANEY MATTA LOCATION: [facility] 550- : 62 UNIT #: [id number] AGE: [address]: Lisseth Carmen MD SEX: M ORDER DR: [id number] [facility] [address] [facility]. [place], [place] [address] [id number] I MR#: [id number] Acc #: [id number] NAME: LANEY MATTA. : 1960 SEX: M STUDY DATE/TIME: 05/27/2017 16:19 UNIT: [facility] ROOM: [address] STUDY DESCRIPTION: CR Chest Single View Portable Attending Physician: Lisseth Carmen M.D. Ordering Physician: Arnaud Fritz M.D. Primary Care Physician: Irma Dietrich M.D. MEDICAL IMAGING REPORT This report is preliminary unless electronic signature is present EXAM Portable chest HISTORY Acute mental status decline today. Shortness of air. FINDINGS Mild cardiac enlargement. Normal pulmonary vascularity. Sternotomy with mediastinal clips and markers. Left subclavian pacer leads extend into the right atrium right ventricle. Minimal linear atelectasis or scarring in the lateral left base. IMPRESSION No acute findings. No active disease. Dictated by... Ralph Landin M.D. THIS IS AN ELECTRONICALLY VERIFIED REPORT Ralph Landin M.D. at 05/28/2017 5:35 PM RAYMONDL/darryl TD: 05/28/2017 04:46 JOB #: [id number] MEDICAL IMAGING REPORT Page 1 of 1 COPY
--- NOTE | ~2017-05-27 | HP ---
Unit #: [id number] #: [id number] Patient: LANEY MATTA [id number] [address] [facility]. [place], [place] [address] [id number] I MR#: [id number] NAME: LANEY MATTA. ROOM: 550 Age: 56 Sex: M Admission Date: 05/27/2017 : 1960 Attending Physician: Lisseth Carmen M.D. Primary Care Physician: Irma Dietrich M.D. HISTORY AND PHYSICAL CHIEF COMPLAINT Mental status changes. HISTORY OF PRESENT ILLNESS A 56-year-old male with multiple medical problems and multiple admissions in the hospital, was last admitted in February 2017 and had same kind of mental status changes and syncopal episode. A lot of history was taken from patient's . According to her, he started having headaches again about four days ago and yesterday he was having slurred speech and was not making sense most of the day. He did not want to come to hospital but later on in the evening, she made him come to ER. Ambulance was called. He was having severe headache. He scratched himself. According to patient's , he does that. He hits his head. He scratches himself whenever he has his headache. He has fallen multiple times at home. He has had passing out episodes multiple times. He had a stroke last year and since then this has been going on. The patient is awake, alert, and oriented x3. According to him, he still has headache but it is not as bad. The patient has decreased vision but he has never seen an tape editor. He is not very compliant with his followup visits and maybe with his medications. He does not complain of any nausea or vomiting. He does not complain of any decreased strength. Right now, his speech seems to be normal. PAST MEDICAL HISTORY 1. History of headaches. 2. History of coronary artery disease. 3. History of sick sinus syndrome, status post pacemaker. 4. Status post CABG. 5. Hypertension. 6. Hyperlipidemia. 7. History of CVA in the past. 8. Diabetes mellitus, type 2. 9. Obstructive sleep apnea. 10. Patent foramen ovale. 11. Chronic anticoagulation therapy. 12. Depression. HOME MEDICATIONS 1. Lipitor 80 mg nightly. 2. Protonix 40 mg daily. 3. Tylenol 650 q.4 p.r.n. 4. Warfarin 7.5 mg at bedtime. 5. Prozac 10 mg daily. 6. Inderal 60 mg twice a day. Unit #: [id number] #: [id number] Patient: LANEY MATTA 7. Hydralazine 100 mg twice a day. 8. Amaryl 4 mg twice a day before meals. 9. Prinivil 10 mg daily. SOCIAL HISTORY Patient lives at home with his . He is a smoker and continued to smoke. No history of alcohol abuse or drug abuse. PAST SURGICAL HISTORY 1. History of CABG. 2. History of pacemaker placement. 3. History of cholecystectomy. FAMILY HISTORY Mom and dad both had coronary artery disease. ALLERGIES No known drug allergies. REVIEW OF SYSTEMS As per history of presenting illness. The patient does not have any complaint of dizziness. No complaint of ears, nose, throat problem although his vision is decreased. Does not complain of chest pain or abdominal pain. No constipation or diarrhea. Rest is as per history of presenting illness. PHYSICAL EXAMINATION GENERAL: Patient is being evaluated in room 550. VITAL SIGNS: Blood pressure 161/96, respiratory rate 20, pulse 61, temperature 98, oxygen saturation is 96%. HEENT: Head is normocephalic. Eye movements are normal. Conjunctival congestion is present. NECK: Supple. CHEST: Fair air entry. Decreased at the bases. CARDIOVASCULAR: S1, S2 positive. Pacemaker click is heard. ABDOMEN: Soft. EXTREMITIES: Negative edema. CENTRAL NERVOUS SYSTEM: Patient is awake, alert, and oriented x3. SKIN: Patient has scratched himself. There are multiple scratches on the face. DIAGNOSTIC STUDIES LABORATORY: WBC 8.1, hemoglobin 13.3, hematocrit 41.6, and platelet count of 229,000. PT/INR is 21.4 and 2. Urinalysis is normal. Urine drug screen was negative. Ammonia 16. Sodium 132, potassium 4.1, chloride 102, BUN 14, creatinine 1.1. Alkaline phosphatase 154. Alcohol less than 5. IMAGING: CT scan of the head without contrast was done which shows generalized atrophy and periventricular microvascular white matter ischemic changes. Old infarcts are noted above. No acute intracranial abnormality was noted. ASSESSMENT The patient is being admitted to telemetry unit with: 1. Mental status changes with slurred speech yesterday with confusion and garbled speech. 2. Severe headache. Unit #: [id number] #: [id number] Patient: LANEY MATTA 3. History of multiple falls at home. 4. Uncontrolled hypertension. 5. History of cerebrovascular accident one year ago. 6. Coronary artery disease. 7. Sick sinus syndrome, status post pacemaker. 8. Anticoagulation therapy which is therapeutic. 9. Diabetes mellitus type 2. 10. Hyperlipidemia. PLAN Plan is admit to telemetry unit. Dr. Jordan has been consulted. Dr. aPyan will be consulted. Dr. Vergara will be consulted. I discussed with patient's at length. According to her, every few days he has severe headache and his blood pressure is high at that time whenever he has headache and starts to scratch himself and hit himself. It has not improved at all. He has not seen tape editor which he needs to see for his vision testing and possible treatment. Patient's medications are being adjusted. Hydralazine is being increased 20 mg t.i.d. and Zestril is being increased to 20 mg b.i.d. Patient cannot have MRI done because of his pacemaker. We may need repeat CT scan. Dr. Vergara also will be consulted. Dictated by Malcom Castaneda TD: 05/28/2017 12:41 JOB #: [id number] HISTORY AND PHYSICAL Page 1 of 1 X Lisseth Carmen MD X HISTORY AND PHYSICAL
[~2017-05-27 15:27] MED LIST changes: +INDERAL20 MG PO; +PROZAC10 M1 PO; +TYL325 PO
[2017-05-27 16:51] LABS: BASOPHIL# 0.1 X10e3 (0-0.3); BASOPHIL% 1.1 % (0-2.5); EOSINOPHIL# 0.1 X10e3 (0-0.7); EOSINOPHIL% 1.1 % (0.0-7.0); HEMATOCRIT 41.6 % (38.0-50.0); HEMOGLOBIN 13.3 gm/dL (13.0-16.0); LYMPHOCYTE# 2.4 X10e3 (1.0-3.5); MEAN CELL VOLUME 82.7 FL (83-96); MEAN CORPUSCULAR HEMOGLOBIN 26.4 PG (28-34); MEAN CORPUSCULAR HGB CONC 31.9 g/dL (30-36); MEAN PLATELET VOLUME 9.8 FL (6.5-11.5); MONOCYTE# 0.7 X10e3 (0-1.0); NEUTROPHIL# 4.9 X10e3 (1.5-7.1); NEUTROPHIL% 60.8 % (40-75); PLATELET COUNT 229 X10e3 (140-420); RED BLOOD COUNT 5.03 X10e (3.90-5.60); RED CELL DISTRIBUTION WIDTH 15.9 % (11.0-15.5); WHITE BLOOD COUNT 8.1 X10e3 (4.0-10.5)
[2017-05-27 16:58] LABS: DIFF IND NO
[2017-05-27 17:05] LABS: PARTIAL THROMBOPLASTIN TIME 41.1 SECONDS (23.5-31.3); PROTHROMBIN TIME (PATIENT) 21.4 SECONDS (10.0-11.7)
[2017-05-27 17:06] LABS: URINE SOURCE CLEAN CATCH
[2017-05-27 17:12] LABS: URINE APPEARANCE CLEAR; URINE BILIRUBIN NEG (NEG); URINE BLOOD NEG (NEG); URINE COLOR YELLOW; URINE GLUCOSE NEG (NEG); URINE KETONE NEG (NEG); URINE LEUKOCYTE ESTERASE NEG (NEG); URINE NITRATE NEG (NEG); URINE PH 7.5 (5-8); URINE PROTEIN NEG (NEG); URINE SPECIFIC GRAVITY 1.007 (1.003-1.035)
[2017-05-27 17:19] LABS: CULTURE INDICATED? NO
[2017-05-27 17:21] LABS: AMPHETAMINE NEG (NEG); BARBITURATES NEG (NEG); BENZODIAZEPINES NEG (NEG); COCAINE NEG (NEG); MARIJUANA NEG (NEG); OPIATES NEG (NEG); TRICYCLIC ANTIDEPRESSANTS NEG (NEG); U METHADONE NEG (NEG)
[2017-05-27 18:06] LABS: ALCOHOL BLOOD <5 mg/dL (0); ALKALINE PHOSPHATASE 154 U/L (32-92); ALT (SGPT) 13 U/L (10-40); AST (SGOT) 14 U/L (10-42); BILIRUBIN, DIRECT 0.2 mg/dL (0.0-0.2); BILIRUBIN,INDIRECT 0.9 mg/dL (0.0-0.9); BILIRUBIN,TOTAL 1.1 mg/dL (0.2-2.0); BLOOD UREA NITROGEN 14 mg/dL (9-23); BUN/CREATININE RATIO 12.72; CALCIUM SERUM 9.1 mg/dL (8.4-10.2); CARBON DIOXIDE 23 mmol/L (22-31); CHLORIDE 102 mmol/L (100-111); CREATININE SERUM 1.1 mg/dL (0.6-1.4); GLOM FILT RATE Estimated 75.2 mL/min (>60); GLUCOSE FASTING 144 mg/dL (70-110); POTASSIUM 4.1 mmol/L (3.5-5.1); PROTEIN TOTAL SERUM 7.8 g/dL (6.0-8.3); SODIUM 132 mmol/L (135-145)
[2017-05-27] MEDS ORDERED: WARFARIN SODIU7.5 M1 PO (19:26)
[2017-05-27] MEDS ORDERED: PROZAC10 MG PO (19:27)
[2017-05-27] MEDS ORDERED: INDERAL60 MG PO (19:27)
[2017-05-27] MEDS ORDERED: PRINIVIL10 MG PO (19:28)
[2017-05-27] MEDS ORDERED: AMARYL PO (19:28)
[2017-05-27] MEDS ORDERED: HYDRALAZINE HC100 MG PO (19:28)
[2017-05-28 06:35] LABS: INR 1.9
[2017-05-28 15:39] LABS: BUN/CREATININE RATIO 13.57; CREATININE SERUM 1.4 mg/dL (0.6-1.4); GLOM FILT RATE Estimated 56.2 mL/min (>60); POTASSIUM 4.3 mmol/L (3.5-5.1)
[2017-05-28 17:17] LABS: FOLATE (FOLIC ACID) 6.6 ng/mL (>5.8)
[2017-05-30 06:14] LABS: PROTHROMBIN TIME (PATIENT) 21.3 SECONDS (10.0-11.7)
[2017-05-30 20:03] LABS: INR 2.1; PROTHROMBIN TIME (PATIENT) 22.3 SECONDS (10.0-11.7)
[2017-05-31 06:05] LABS: HEMATOCRIT 38.6 % (38.0-50.0); HEMOGLOBIN 12.4 gm/dL (13.0-16.0); MEAN CELL VOLUME 81.9 FL (83-96); MEAN CORPUSCULAR HEMOGLOBIN 26.3 PG (28-34); MEAN CORPUSCULAR HGB CONC 32.1 g/dL (30-36); MEAN PLATELET VOLUME 9.7 FL (6.5-11.5); RED BLOOD COUNT 4.72 X10e (3.90-5.60); RED CELL DISTRIBUTION WIDTH 15.5 % (11.0-15.5); WHITE BLOOD COUNT 6.5 X10e3 (4.0-10.5)
[2017-05-31 07:14] LABS: BUN/CREATININE RATIO 15.83; CALCIUM SERUM 8.9 mg/dL (8.4-10.2); CREATININE SERUM 1.2 mg/dL (0.6-1.4); GLOM FILT RATE Estimated 67.7 mL/min (>60)
[2017-05-31] MEDS ORDERED: KEPPRA500 M2 PO (17:14)
[2017-05-31] MEDS ORDERED: NICOTINE PATCH1 EAC1 TD (17:15)
[2017-05-31] MEDS ORDERED: ENDOCET 5-3251 EACH PO (17:18)
[2017-05-31] MEDS ORDERED: ASPIRIN81 MG PO (17:21)
[2017-05-31] MEDS ORDERED: CYANOCOBAL1000 MCG/1 INJ (17:21)
== END 2017-05-31 17:44 | disposition home or self-care (01) | DRG 312 ==
LOC: CED 15:27 → CEDOF 18:35 → C5C 18:35 → CEDOF 19:19 → CED 19:19 → CEDOF 05-28 08:09 → C5B 05-28 08:09 → C5C 05-28 22:38
PROVIDERS: Emergency Medicine; Hospitalist; Internal Medicine Cardiovascular Disease; Nurse Practitioner; Physician Assistant Medical; Psychiatry & Neurology Neurology
DX: R55 Syncope and collapse (principal); G92 Toxic encephalopathy; I10 Essential (primary) hypertension; I25.10 Atherosclerotic heart disease of native coronary artery without angina pectoris; E53.8 Deficiency of other specified B group vitamins; F17.200 Nicotine dependence, unspecified, uncomplicated; R47.81 Slurred speech; E11.9 Type 2 diabetes mellitus without complications; E78.5 Hyperlipidemia, unspecified; R51 Headache; Z86.73 Personal history of transient ischemic attack (TIA), and cerebral infarction without residual deficits; Z91.81 History of falling; Z71.6 Tobacco abuse counseling; Z95.1 Presence of aortocoronary bypass graft; Z95.0 Presence of cardiac pacemaker; Z90.49 Acquired absence of other specified parts of digestive tract; Z79.01 Long term (current) use of anticoagulants; Z82.49 Family history of ischemic heart disease and other diseases of the circulatory system
CPT/HCPCS: 36415; 70450; 71010; 80048; 80076; 80307; 81003; 82140; 82607; 82746; 82947; 83036; 83735; 84484; 85025; 85027; 85610; 85730; 93005; 95816; 96374; 97166; 99285; G0480; G8987-GO; G8988-GO; G8989-GO; J1815; J3420

== ENCOUNTER 2017-07-27 13:03 | Inpatient (IN) | payer OTHER ==
[~2017-07-27] VITALS: Ht 185.4 cm; Wt 100.3 kg
--- NOTE | ~2017-07-27 | CO ---
Unit #: [id number] #: [id number] Patient: LANEY MATTA [id number] [address] [address] [id number] I MR#: [id number] NAME: LANEY MATTA. ROOM: 547 Age: 56 Sex: M Admission Date: 07/27/2017 : 1960 Attending Physician: Neto Clarke M.D. Primary Care Physician: Irma Dietrich M.D. Consultation Date: 07/28/2017 CONSULTATION REPORT REASON FOR CONSULT Pneumonia. HISTORY OF PRESENT ILLNESS This is a very pleasant 56-year-old male with past medical history significant for coronary artery disease status post bypass surgery, hypertension, obstructive sleep apnea who presented to the emergency room with one day history of progressive chest pain. His stated that his chest pain started on the left side, then moved to the right side. It was associated with heaviness in his bilateral arm. Patient was feeling more short winded. He denied any fever, chills or cough. No nausea, vomiting or diarrhea. Upon presentation to the emergency room he started feeling better before even he made it there. He denied taking any aspirin or nitroglycerin on his way to the emergency room. In the hospital, his workup showed a chest x-ray with left lower lobe opacity concerning for pneumonia versus atelectasis. Patient denied any recent hospitalization. He doesn't wear oxygen. His last stress test was probably 4-5 years ago. PAST MEDICAL HISTORY 1. Coronary artery disease. 2. Hypertension. 3. Diabetes. 4. Hyperlipidemia. 5. Sick sinus syndrome. 6. Obstructive sleep apnea. 7. Depression. 8. Chronic headache. 9. CVA. 10. Patent foramen ovale. PAST SURGICAL HISTORY 1. AICD placement. 2. CABG. HOME MEDICATION 1. Amaryl. 2. Protonix. 3. Neurontin. 4. Coumadin. Unit #: [id number] #: [id number] Patient: LANEY MATTA 5. Lipitor. 6. Lasix. 7. Hydralazine. 8. Aspirin. 9. Lortab. 10. Metformin. 11. Imitrex. 12. Propranolol. 13. Zanaflex. 14. Colchicine. 15. Prozac. ALLERGY No known drug allergy. SOCIAL HISTORY Patient continues to smoke but no history of alcohol or drug abuse. FAMILY HISTORY Unremarkable. PHYSICAL EXAM VITAL SIGNS: His blood pressure 149/69, respiratory rate 18, O2 saturation 96% on room air. HEENT: Atraumatic, normocephalic. PERRLA, EOMI. NECK: Supple. No JVD, no lymphadenopathy. CHEST: Fine rhonchi at the left lower lobe. HEART: S1, S2. No murmur or gallops or rubs. ABDOMEN: Soft, nontender. Bowel sound is positive. No hepatosplenomegaly. EXTREMITY: No edema or cyanosis. SKIN: No rashes. GOLF COURSE MANAGER: Awake, alert, oriented x3. No focal motor/sensory deficit. LABS AND OTHER TESTS Creatinine 1.3, potassium 5.3, white blood count 6.4, hemoglobin 13.0. Chest x-ray reviewed and noted by me. ASSESSMENT 1. Severe sepsis secondary to community-acquired pneumonia. 2. Community-acquired pneumonia, likely Gram-positive. 3. Chest pain. 4. Hyperkalemia. 5. Coronary artery disease. 6. Hypertension. 7. Diabetes. 8. Chronic kidney disease. PLAN 1. Patient currently is hemodynamically stable on room air. 2. Will follow lactic acid level to assess for any need for IV hydration. 3. Will continue current antibiotics. 4. Per patient report, he had multiple AICD shocks. I suggest cardiology consult and possible stress test but will defer to his obstetrics nurse practitioner, Dr. Ponce. 5. Hyperkalemia management. Unit #: [id number] #: [id number] Patient: LANEY MATTA 6. DVT prophylaxis. I would like to thank Dr. Clarke for allowing me to be part of this patient care. Dictated by... Malcom Neal TD: 07/29/2017 09:46 JOB #: [id number] CONSULTATION REPORT Page 1 of 1 X ZHOU ALONZO MD CONSULTATION REPORT
--- NOTE | ~2017-07-27 | EKG ---
PATIENT: LANEY MATTA UNIT #: [id number] Ventricular Rate: 107 BPM Atrial Rate: 107 BPM P-R Interval: 280 ms QRS Duration: 116 ms Q-T Interval: 278 ms QTC Calculation(Bezet): 371 ms P [place]: 3 degrees Calculated R [place]: -7 degrees Calculated T [place]: 151 degrees Diagnosis Line: Sinus tachycardia with 1st degree A-V block with Diagnosis Line: Premature atrial complexes with Aberrant Diagnosis Line: conduction Diagnosis Line: Left atrial enlargement Diagnosis Line: T wave abnormality, consider anterolateral Diagnosis Line: ischemia Diagnosis Line: Abnormal ECG Diagnosis Line: When compared with ECG of 29-MAY-2017 06:13, Diagnosis Line: Aberrant conduction is now Present Diagnosis Line: Vent. rate has increased BY 46 BPM Diagnosis Line: T wave inversion less evident in Anterolateral Diagnosis Line: leads Diagnosis Line: QT has shortened Diagnosis Line: Confirmed by THEODORA MCKENZIE MD ([id number]) on 07/30/2017 Diagnosis Line: 1:50:03 PM INTERPRETING MD: MAGALY GORDILLO
--- NOTE | ~2017-07-27 | DS ---
Unit #: [id number] #: [id number] Patient: LANEY MATTA [id number] [address] [address] [id number] I MR#: [id number] NAME: LANEY MATTA. ROOM: 547 Age: 56 Sex: M Admission Date: 07/27/2017 : 1960 Discharge Date: 07/30/2017 Attending Physician: Neto Clarke M.D. Primary Care Physician: Irma Dietrich M.D. DISCHARGE SUMMARY FINAL DIAGNOSES 1. Severe sepsis. 2. Pneumonia. 3. Acute kidney injury which is improved. 4. Hypertension. 5. Coronary artery disease. 6. Chest pain which is noncardiac in origin per food handler. 7. Coronary artery disease with a history of old myocardial infarction, status post coronary artery bypass graft. Ejection fraction of 50%. 8. Status post pacemaker placement. 9. Patent foramen ovale, on anticoagulation therapy. 10. History of cerebrovascular accident. 11. Obstructive sleep apnea. 12. Bilateral carotid stenosis less than 50%. 13. Tobacco abuse, ongoing. DISCHARGE MEDICATIONS 1. Lortab 7.5/325, 1 tablet t.i.d. p.r.n. 2. Protonix 40 mg daily. 3. Zanaflex 4 mg t.i.d. p.r.n. 4. Amaryl 4 mg twice a day. 5. Augmentin 875 mg b.i.d. for 5 days. 6. Imitrex 100 mg daily p.r.n. 7. Lasix 20 mg daily. 8. Hydralazine 100 mg b.i.d. 9. Colchicine 0.6 mg daily. 10. Aspirin 81 mg daily. 11. Warfarin 7.5 mg daily. 12. Neurontin 600 mg 3x a day. 13. Prozac 20 mg daily. 14. Glucophage 1000 mg b.i.d. 15. Atorvastatin 80 mg daily. 16. Propranolol 40 mg twice a day. CONSULTATION DURING HOSPITALIZATION 1. Dr. Do Jean-Baptiste from Pulmonary Services. 2. Dr. Payan from Cardiology Services. LAB WORKUP ON DISCHARGE Sodium 141, potassium 4.4, chloride 108, bicarb 27, BUN 26, creatinine 1.0, WBC 6.0, hemoglobin 11.5, hematocrit 35.5 and platelet count of 189. INR is 1.9, magnesium 2.1. HOSPITAL COURSE Unit #: [id number] #: [id number] Patient: LANEY MATTA is a 56-year-old male whose primary care provider is Dr. Dietrich, came to ER and was admitted by my colleague, Dr. Clarke, with chills, nonproductive cough and diagnosed with pneumonia and sepsis and was admitted to Telemetry unit. Dr. Payan was consulted. Patient's chest is noncardiac. Dr. Jean-Baptiste was consulted. Patient was started on IV Rocephin and Zithromax and is being discharged home on Augmentin because he has Coumadin. Patient is stable at this time, wants to go home. He continued to use tobacco. Tobacco cessation counseling done. He verbalized understanding. DISCHARGE INSTRUCTIONS 1. Follow up with primary care provider in one week. 2. Follow up with cardiology as scheduled. 3. PT/INR to be done in 3 days. 4. Tobacco cessation counseling done. Dictated by... Malcom Castaneda/chica TD: 08/02/2017 06:20 JOB #: [id number] DISCHARGE SUMMARY Page 1 of 1 X Lisseth Carmen MD X DISCHARGE SUMMARY
--- NOTE | ~2017-07-27 | CR72 ---
[facility] A Service of [facility] & [facility] RADIOLOGY TEXT RESULTS PATIENT: LANEY MATTA LOCATION: [place] [address] : 62 UNIT #: [id number] AGE: [address]: Neto Clarke MD SEX: M ORDER DR: [id number] [facility] [address] [place], [place] [address] [id number] MR#: [id number] Acc #: [id number] NAME: LANEY MATTA. : 1960 SEX: M STUDY DATE/TIME: 07/27/2017 13:45 UNIT: CEDOF ROOM: 81028 STUDY DESCRIPTION: CR Chest Single View Portable Attending Physician: Neto Clarke M.D. Ordering Physician: Ed John Raines M.D. Primary Care Physician: Irma Dietrich M.D. MEDICAL IMAGING REPORT This report is preliminary unless electronic signature is present EXAM Portable chest INDICATIONS Chest pain and shortness of breath for 2 days. COMPARISON 05/27/2017 FINDINGS There is low-volume inspiration. There is mild atelectasis in the right base. More dense opacity in the left base represents in part atelectasis, however may also reflect superimposed pneumonia. Followup to clearing is recommended. Heart size stable. IMPRESSION There is a dense opacity in the left base representing at least in part atelectasis; however, a concurrent pneumonia should also be considered. Followup to clearing is recommended. Dictated by... Marino Walsh M.D. THIS IS AN ELECTRONICALLY VERIFIED REPORT Marino Walsh M.D. at 07/31/2017 7:20 AM ARS/mumtaz TD: 07/27/2017 17:26 JOB #: [id number] MEDICAL IMAGING REPORT Page 1 of 1 COPY
--- NOTE | ~2017-07-27 | HP ---
Unit #: [id number] #: [id number] Patient: LANEY RADFORD [id number] [address] [address] [id number] I MR#: [id number] NAME: LANEY RADFORD. ROOM: 54 Age: 56 Sex: M Admission Date: 07/27/2017 : 1960 Attending Physician: Neto Clarke M.D. Primary Care Physician: Irma Dietrich M.D. HISTORY AND PHYSICAL ADMISSION DIAGNOSES 1. Pneumonia. 2. History of coronary artery disease, status post CABG. 3. History of sick sinus syndrome, status post AICD and pacemaker. 4. Diabetes. 5. Depression. 6. Hypertension. 7. Obstructive sleep apnea. 8. History of patent foramen ovale. HISTORY OF PRESENT ILLNESS Mr. Radford is a 56-year-old gentleman, patient of Dr. Dietrich, who was brought to the emergency room by his secondary to a right sided chest pain and questionable misfiring of his AICD pacemaker. Patient also had complaints of some chills and nonproductive cough. Initial evaluation in the emergency room found him with the right sided pneumonia and started on the IV Zithromax and Rocephin. Patient currently feels better. Denies any syncope, presyncope, headache, dizziness, nausea, vomiting, diarrhea, fever or abdominal pain. REVIEW OF SYSTEMS So, 12-point review of systems on this patient is basically negative except as above in HPI. PAST MEDICAL HISTORY Rather extensive and includes: 1. History of coronary artery disease. 2. Hypertension. 3. Diabetes. 4. Dyslipidemia. 5. Sick sinus syndrome. 6. Obstructive sleep apnea. 7. Depression. 8. Chronic headaches. 9. History of CVA in the past. 10. History of patent foramen ovale. PAST SURGICAL HISTORY Significant for: 1. AICD and pacemaker placement. 2. History of CABG. MEDICATIONS Home medications on this gentleman include: Unit #: [id number] #: [id number] Patient: LANEY RADFORD 1. Amaryl. 2. Protonix. 3. Neurontin. 4. Coumadin. 5. Lipitor. 6. Lasix. 7. Hydralazine. 8. Aspirin. 9. Lortab. 10. Metformin. 11. Imitrex. 12. Propranolol. 13. Zanaflex. 14. Colchicine. 15. Prozac. ALLERGIES No known drug allergies. SOCIAL HISTORY He still continues to smoke. Denies any alcohol or illicit drugs. FAMILY HISTORY Unremarkable. PHYSICAL EXAM GENERAL: The patient is a 56-year-old gentleman in no acute distress. VITAL SIGNS: BP 150/90, heart rate 104, respirations 24, temperature 98.1. HEENT: Head is atraumatic. Pupils equal, round, reactive to light and accommodation. Extraocular muscles are intact. Oropharynx clear. NECK: Supple. No masses, no JVD, no bruits. CHEST: Diminished bilaterally. CARDIOVASCULAR SYSTEM: S1 and S2, no murmurs. ABDOMEN: Soft, nontender, nondistended. EXTREMITIES: Lower extremities without any cyanosis, clubbing or edema. NEUROLOGIC: Patient is grossly intact. No focal deficits. LABS AND DIAGNOSTICS IMAGING: Again, chest x-ray shows a left basal opacity. LABORATORY: Chemistry as mentioned above. Glucose 245, sodium 133, potassium 3.4, chloride 97, alk. phos. is 147. Lactic acid 2.8. Coagulation panel - PT/INR 13.9 and 1.3. White count 10.4, H and H 14.1 and 42.1. Blood cultures pending. ASSESSMENT AND PLAN 1. Community-acquired pneumonia. Continue IV Zithromax and Rocephin. Bronchodilators p.r.n. Pulmonary to follow. 2. History of coronary artery disease, status post CABG. Continue medical management. 3. History of sick sinus syndrome, status post permanent pacemaker with questionable misfiring. Will consult Dr. Payan to resume Coumadin. Will discuss with Dr. Payan whether or not need to bridge with the Unit #: [id number] #: [id number] Patient: LANEY RADFORD Coumadin dose of Lovenox until INR therapeutic. 4. History of CVA in the past. Continue home meds. 5. History of hypertension. Continue home meds. 6. Dyslipidemia. Will continue home Lipitor. 7. History of depression. 8. History of foramen ovale and history of CVA, on chronic anticoagulation. 9. Depression. Continue home medications. 10. GI and DVT prophylaxis. Continue PPI, continue Coumadin. Monitor INR. Again, we will discuss with Dr. Payan regarding treatment dose of Lovenox. Dictated by Malcom Vazquez/chica TD: 07/28/2017 08:09 JOB #: [id number] HISTORY AND PHYSICAL Page 1 of 1 X Neto Clarke MD X HISTORY AND PHYSICAL
--- NOTE | ~2017-07-27 | CO ---
Unit #: [id number] #: [id number] Patient: LANEY MATTA [id number] [facility] [address] [facility]. [place], [place] [address] [id number] MR#: [id number] NAME: LANEY MATTA. ROOM: 547 Age: 56 Sex: M Admission Date: 07/27/2017 : 1960 Attending Physician: Neto Clarke M.D. Primary Care Physician: Irma Dietrich M.D. CONSULTATION REPORT DICTATED FOR [facility] with Dr. Jose Angel Plasencia. REASON FOR CONSULTATION Chest pain. HISTORY OF PRESENT ILLNESS The patient is a 56-year-old white male, who is known to Dr. Payan for history of coronary artery disease, status post CABG in 2008; LA in 2008; sick sinus syndrome, status post Medtr[employer] pacemaker in 07/2015; PFO, on Coumadin; hypertension; hyperlipidemia; diabetes; history of right IMPORT MANAGER CVA; obstructive sleep apnea, noncompliant with CPAP; bilateral carotid artery stenosis, less than 50% bilaterally from 02/2017; frequent falls; 3-pack per day smoker; and frequent headaches. The patient came to the ER with complaints of chest pain that started around 7 p.m. on 07/26/2017. The patient states that the pain was midsternal area with radiation to the left side of his abdomen down into his left leg. The patient has described it as a sharp shooting pain, nonexertional, and is relieved by holding pressure against his chest. The patient also reports that he has had a cough over the past couple of weeks and the pain is noted to be worse with coughing. He reports cough with mucus production, nausea, feeling feverish with chills, occasional dizziness, and headaches. He denies any vomiting, diarrhea, or syncope. PAST MEDICAL HISTORY 1. Echocardiogram in 05/2016 with an EF equal to 50%, PFO, [id number] MR, mild TR, and akwp-[id number]-[id number] atherosclerosis of the aorta. 2. Coronary artery disease, status post CABG in 2008. 3. LA in 2008. 4. Lexiscan Cardiolite stress test in 12/2015 showed suspicion for old small inferolateral wall LA. No ischemia. Ejection fraction of 40%. 5. Hypertension. 6. Hyperlipidemia. 7. Diabetes. 8. Sick sinus syndrome, status post dual-chamber Medtronic permanent pacemaker on 08/01/2015. 9. PFO, on chronic Coumadin anticoagulation. 10. History of right IMPORT MANAGER CVA. 11. Obstructive sleep apnea. 12. Bilateral carotid stenosis less than 50%. 13. Frequent falls. 14. Headache. 15. Active smoker. Unit #: [id number] #: [id number] Patient: LANEY MATTA PAST SURGICAL HISTORY 1. CABG surgery. 2. Permanent pacemaker. 3. Cholecystectomy. SOCIAL HISTORY The patient is disabled. He does live at home with his . He is a 3-pack per day smoker. He denies any alcohol abuse or any other illicit drug abuse. REVIEW OF SYSTEMS See HPI. PHYSICAL EXAMINATION GENERAL: This is a 56-year-old white male, who is alert and oriented x3, in no apparent distress. VITAL SIGNS: Blood pressure is 108/67, pulse 75, temperature 98, and respirations 20. HEENT: Pupils are equal, round, and reactive. Oral mucosa is moist. NECK: No JVD. No thyromegaly. No lymphadenopathy. No carotid bruits. HEART: S1 and S2. No S3 or S4. No clicks. No rubs. No murmurs. LUNGS: Clear. ABDOMEN: Soft. Bowel sounds positive. Nontender. Nondistended. EXTREMITIES: No swelling noted. NEUROLOGIC: No neuro deficits noted. DIAGNOSTIC STUDIES LABORATORY RESULTS: Troponin less than 0.05, then less than 0.05, then less than 0.03. Blood culture, one of two sets growing gram-positive cocci in clusters. Sodium 136, potassium 5.3, chloride 101, CO2 of 25, glucose 259, BUN 24, and creatinine 1.3. GFR 61.4. White count 6.4, hemoglobin 13, hematocrit 38.9, and platelets are 212. INR is 1.2. UA, positive leukocytes and nitrites. Culture is pending. Lactic 2.8, then 4.2. IMAGING STUDIES: Chest x-ray shows left base pneumonia. EKG shows sinus tach with a rate of 107 with a single PVC and a first-degree AV block. ALLERGIES No known allergies. HOME MEDICATIONS Include Amaryl 4 mg p.o. b.i.d., Protonix 40 mg p.o. daily, Neurontin 600 mg p.o. t.i.d., Coumadin 7.5 mg p.o. daily, Atorvastatin 80 mg p.o. daily, Lasix 20 mg p.o. daily, hydralazine 100 mg p.o. b.i.d., aspirin 81 mg p.o. daily, Lortab 7.5/325 one tab p.o. t.i.d. as needed for pain, Glucophage 1000 mg p.o. b.i.d., Imitrex 100 mg p.o. one time as needed for headache, propranolol 40 mg p.o. b.i.d., Zanaflex 4 mg p.o. t.i.d., colchicine 0.6 mg p.o. daily, and Prozac 20 mg p.o. daily. IMPRESSION 1. Atypical chest pain that has resolved. 2. History of myocardial infarction with coronary artery disease, status post coronary artery bypass grafting in 2008. Unit #: [id number] #: [id number] Patient: LANEY MATTA 3. Sick sinus syndrome, history of pacemaker. The patient reports he has been shocked by. 4. Hypertension. 5. Hyperlipidemia. 6. Diabetes. 7. Tobacco abuse. 8. Left ventricular ejection fraction of 50% in 05/2016. 9. Lexiscan Cardiolite stress test in 12/2015 with no ischemia and old small inferolateral wall myocardial infarction. 10. Possible pneumonia in the left lung base. 11. Obstructive sleep apnea, noncompliant with CPAP. PLAN We will trend troponins q.6 hours x3 sets. We will check a fasting lipid panel, A1c, BMP, and mag in the morning. We will have pacemaker checked for any arrhythmias or cardiac events that could explain the symptoms. The patient has atypical chest pain that resolved shortly after arrival with no further chest pain since. Chest pain is atypical in nature and worse with coughing. He has two negative troponins. EKG is not acute for ischemia. The patient with likely left basilar pneumonia and with coughing has some musculoskeletal tenderness. Dr. Plasencia to see with any further recommendations and evaluation. Continue aspirin, statin, beta-neftali, hydralazine, and Lasix. Dictated by... THUAN Crawford TD: 07/29/2017 12:42 JOB #: [id number] CONSULTATION REPORT Page 1 of 1 X X CONSULTATION REPORT
[~2017-07-27 13:03] MED LIST changes: +ASPIRIN81 MG PO; +CYANOCOBAL1000 MCG/1 INJ; +ENDOCET 5-3251 EACH PO; +INDERAL60 MG PO; +KEPPRA500 M2 PO; +NICOTINE PATCH1 EAC1 TD; +PRINIVIL10 MG PO; +PROZAC10 MG PO; +WARFARIN SODIU7.5 M1 PO
[2017-07-27] MEDS ORDERED: IMITREX PO (13:37)
[2017-07-27] MEDS ORDERED: PROZAC10 M1 PO (13:37)
[2017-07-27] MEDS ORDERED: PROPRANOLOL PO (13:37)
[2017-07-27] MEDS ORDERED: COLCHICINE0.6 M1 PO (13:37)
[2017-07-27] MEDS ORDERED: ZANAFLEX PO (13:37)
[2017-07-27] MEDS ORDERED: PROTONIX PO (13:38)
[2017-07-27] MEDS ORDERED: ATORVASTATIN CA80 MG PO (13:38)
[2017-07-27] MEDS ORDERED: AMARYL2 MG PO (13:38)
[2017-07-27] MEDS ORDERED: HYDRALAZINE HC100 MG PO (13:38)
[2017-07-27] MEDS ORDERED: LASIX20 MG PO (13:38)
[2017-07-27] MEDS ORDERED: NEURONTIN300 MG PO (13:38)
[2017-07-27] MEDS ORDERED: COUMADIN PO (13:38)
[2017-07-27] MEDS ORDERED: PATIENT'S PHARMACY (13:39)
[2017-07-27] MEDS ORDERED: ASPIRIN81 M2 PO (13:39)
[2017-07-27] MEDS ORDERED: LORTAB 7.5-3251 EACH PO (13:39)
[2017-07-27] MEDS ORDERED: METFORMIN PO (13:41)
[2017-07-27 14:41] LABS: BASOPHIL# 0.1 X10e3 (0-0.3); BASOPHIL% 0.7 % (0-2.5); EOSINOPHIL% 0.2 % (0.0-7.0); HEMATOCRIT 42.1 % (38.0-50.0); HEMOGLOBIN 14.2 gm/dL (13.0-16.0); LYMPHOCYTE# 2.9 X10e3 (1.0-3.5); LYMPHOCYTE% 27.5 % (17.0-45.0); MEAN CELL VOLUME 77.3 FL (83-96); MEAN CORPUSCULAR HEMOGLOBIN 26.1 PG (28-34); MEAN CORPUSCULAR HGB CONC 33.7 g/dL (30-36); MEAN PLATELET VOLUME 9.1 FL (6.5-11.5); MONOCYTE# 0.9 X10e3 (0-1.0); MONOCYTE% 8.8 % (3.0-12.0); NEUTROPHIL# 6.6 X10e3 (1.5-7.1); NEUTROPHIL% 62.8 % (40-75); PLATELET COUNT 192 X10e3 (140-420); RED BLOOD COUNT 5.44 X10e (3.90-5.60); RED CELL DISTRIBUTION WIDTH 15.3 % (11.0-15.5); WHITE BLOOD COUNT 10.4 X10e3 (4.0-10.5)
[2017-07-27 14:42] LABS: DIFF IND NO
[2017-07-27 14:56] LABS: INR 1.3; PARTIAL THROMBOPLASTIN TIME 45.1 SECONDS (23.5-31.3); PROTHROMBIN TIME (PATIENT) 13.9 SECONDS (10.0-11.7)
[2017-07-27 14:57] LABS: POC - CKMB <1.0 ng/mL (0.0-7.9); POC - TROPONIN <0.05 ng/mL (<=0.05)
[2017-07-27 15:08] LABS: ALBUMIN SERUM 3.8 g/dL (3.5-5.0); BILIRUBIN, DIRECT 0.2 mg/dL (0.0-0.2); BILIRUBIN,INDIRECT 0.5 mg/dL (0.0-0.9); BILIRUBIN,TOTAL 0.7 mg/dL (0.2-2.0); CALCIUM SERUM 8.9 mg/dL (8.4-10.2); CREATININE SERUM 1.2 mg/dL (0.6-1.4); GLOM FILT RATE Estimated 67.7 mL/min (>60); POTASSIUM 3.4 mmol/L (3.5-5.1); PROTEIN TOTAL SERUM 7.9 g/dL (6.0-8.3)
[2017-07-27 17:31] LABS: POC - CKMB 1.4 ng/mL (0.0-7.9); POC - TROPONIN <0.05 ng/mL (<=0.05)
[2017-07-27 20:48] LABS: URINE APPEARANCE CLEAR; URINE BLOOD NEG (NEG); URINE COLOR ORANGE; URINE GLUCOSE >1000 MG/DL (NEG); URINE KETONE TRACE (NEG); URINE LEUKOCYTE ESTERASE TRACE (NEG); URINE NITRATE POS (NEG); URINE PROTEIN 1+ (NEG); URINE SPECIFIC GRAVITY 1.034 (1.003-1.035)
[2017-07-27 20:51] LABS: URBCS1 AUWI 0-2 /[HPF] (0-2); URINE BACTERIA AUWI NEG (NEGATIVE); URINE SQUAMOUS EPITHELIAL CELL NONE SEEN /[HPF]
[2017-07-27 20:53] LABS: URINE BILIRUBIN NEG (NEG)
[2017-07-28 06:41] LABS: HEMATOCRIT 38.9 % (38.0-50.0); MEAN CELL VOLUME 77.3 FL (83-96); MEAN CORPUSCULAR HEMOGLOBIN 25.9 PG (28-34); MEAN CORPUSCULAR HGB CONC 33.5 g/dL (30-36); MEAN PLATELET VOLUME 9.5 FL (6.5-11.5); RED BLOOD COUNT 5.03 X10e (3.90-5.60); RED CELL DISTRIBUTION WIDTH 15.5 % (11.0-15.5); WHITE BLOOD COUNT 6.4 X10e3 (4.0-10.5)
[2017-07-28 06:49] LABS: INR 1.2; PROTHROMBIN TIME (PATIENT) 13.1 SECONDS (10.0-11.7)
[2017-07-28 07:28] LABS: BUN/CREATININE RATIO 18.46; CALCIUM SERUM 9.4 mg/dL (8.4-10.2); CREATININE SERUM 1.3 mg/dL (0.6-1.4); GLOM FILT RATE Estimated 61.4 mL/min (>60)
[2017-07-28 07:43] LABS: POTASSIUM 5.3 mmol/L (3.5-5.1)
[2017-07-28 15:08] LABS: CHOLESTEROL 170 mg/dL (0-200); HDL CHOLESTEROL 42 mg/dL (29-75); LDL CHOLESTEROL 99 mg/dL ([, -130]); LDL/HDL RATIO 2 RATIO (0-4); TRIGLYCERIDES 146 mg/dL (10-160)
[2017-07-28 21:10] LABS: BUN/CREATININE RATIO 23.75; CALCIUM SERUM 8.9 mg/dL (8.4-10.2); CREATININE SERUM 1.6 mg/dL (0.6-1.4); GLOM FILT RATE Estimated 47.8 mL/min (>60)
[2017-07-29 05:42] LABS: HEMATOCRIT 35.7 % (38.0-50.0); HEMOGLOBIN 12.1 gm/dL (13.0-16.0); MEAN CELL VOLUME 77.2 FL (83-96); MEAN CORPUSCULAR HEMOGLOBIN 26.2 PG (28-34); MEAN CORPUSCULAR HGB CONC 33.9 g/dL (30-36); MEAN PLATELET VOLUME 9.3 FL (6.5-11.5); RED BLOOD COUNT 4.63 X10e (3.90-5.60); RED CELL DISTRIBUTION WIDTH 15.4 % (11.0-15.5); WHITE BLOOD COUNT 9.5 X10e3 (4.0-10.5)
[2017-07-29 05:55] LABS: INR 1.5; PROTHROMBIN TIME (PATIENT) 16.2 SECONDS (10.0-11.7)
[2017-07-29 06:26] LABS: BUN/CREATININE RATIO 29.23; CALCIUM SERUM 8.8 mg/dL (8.4-10.2); CREATININE SERUM 1.3 mg/dL (0.6-1.4); GLOM FILT RATE Estimated 61.4 mL/min (>60); MAGNESIUM 1.7 mg/dL (1.6-3.0); POTASSIUM 4.3 mmol/L (3.5-5.1)
[2017-07-29 06:53] LABS: PROCALCITONIN 0.08 NG/ML
[2017-07-30 06:37] LABS: HEMATOCRIT 35.5 % (38.0-50.0); HEMOGLOBIN 11.5 gm/dL (13.0-16.0); MEAN CELL VOLUME 77.6 FL (83-96); MEAN CORPUSCULAR HEMOGLOBIN 25.2 PG (28-34); MEAN CORPUSCULAR HGB CONC 32.4 g/dL (30-36); MEAN PLATELET VOLUME 9.1 FL (6.5-11.5); RED BLOOD COUNT 4.57 X10e (3.90-5.60); RED CELL DISTRIBUTION WIDTH 15.4 % (11.0-15.5)
[2017-07-30 07:00] LABS: CALCIUM SERUM 8.6 mg/dL (8.4-10.2); GLOM FILT RATE Estimated 84.4 mL/min (>60); POTASSIUM 4.4 mmol/L (3.5-5.1)
[2017-07-30 07:42] LABS: INR 1.9; PROTHROMBIN TIME (PATIENT) 20.5 SECONDS (10.0-11.7)
[2017-07-30] MEDS ORDERED: AUGMENTIN PO (13:52)
== END 2017-07-30 15:15 | disposition home or self-care (01) | DRG 871 ==
LOC: CED 13:03 → CEDOF 16:20 → CED 16:46 → CEDOF 16:46 → C5B 18:46 → CEDOF 18:46 → C5B 07-30 15:15
PROVIDERS: Emergency Medicine; Hospitalist; Internal Medicine
DX: A41.9 Sepsis, unspecified organism (principal); J18.9 Pneumonia, unspecified organism; N17.9 Acute kidney failure, unspecified; Q21.1 Atrial septal defect; R65.20 Severe sepsis without septic shock; I25.10 Atherosclerotic heart disease of native coronary artery without angina pectoris; Z95.1 Presence of aortocoronary bypass graft; I25.2 Old myocardial infarction; Z79.01 Long term (current) use of anticoagulants; I12.9 Hypertensive chronic kidney disease with stage 1 through stage 4 chronic kidney disease, or unspecified chronic kidney disease; N18.9 Chronic kidney disease, unspecified; E78.5 Hyperlipidemia, unspecified; E11.9 Type 2 diabetes mellitus without complications; G47.33 Obstructive sleep apnea (adult) (pediatric); F17.200 Nicotine dependence, unspecified, uncomplicated; Z91.81 History of falling; Z86.73 Personal history of transient ischemic attack (TIA), and cerebral infarction without residual deficits; I65.23 Occlusion and stenosis of bilateral carotid arteries; E87.5 Hyperkalemia; G89.29 Other chronic pain
CPT/HCPCS: 36415; 71010; 80048; 80061; 80076; 81003; 82308; 82553; 82947; 83036; 83605; 83735; 84443; 84484; 85025; 85027; 85610; 85730; 87040; 87086; 93005; 94640; 94760; 96374; 96375; 99285; J0456; J0696; J1650; J1815; J2930; J3370; J3475